=== PATIENT | female | born 1950 | race Caucasian/White ===

== ENCOUNTER 2017-11-18 12:37 | Inpatient (IN) | payer OTHER ==
--- NOTE | 2017-11-18 13:03 | PDOC ---
History of Present Illness - General History Source: Patient - History of Present Illness Initial Comments: 11/18/17 14:34 67 year old female with a PMH of IDDM, COPD, ? CHF, Lymphedema, Venous stasis and NEIL presents to the ED c/o 2 day h/o shortness of breath (at rest and exertion) and productive cough (whitish sputum). Patient states at baseline she is on between 1-3 L O2 however for the last 2 days she has been using 3 L and is still short of breath. Denies any fevers/chills, tolerating PO intake. Patient further states she is sometimes told she has CHF and sometimes told she doesn't have CHF. Allergy: Tigecycline Surgical: denies Social: (+) cigarettes As per EMR patient was admitted to our facility in 09/2017 for <Sophy Perdomo - Last Filed: 11/18/17 15:00> <Keisha Wallis - Last Filed: 11/18/17 20:38> - General Stated Complaint: CHF Time Seen by Provider: 11/18/17 12:58 Past History - Past Medical History COPD: Yes Diabetes: Yes HTN: Yes Hypercholesterolemia: Yes - Immunization History Immunization Up to Date: Yes - Suicide/Smoking/Psychosocial Hx Smoking History: Former smoker Have you smoked in the past 12 months: No If you are a former smoker, when did you quit?: 2003 Hx Alcohol Use: No Drug/Substance Use Hx: No Substance Use Type: None Hx Substance Use Treatment: No <Sophy Perdomo - Last Filed: 11/18/17 15:00> <Keisha Wallis - Last Filed: 11/18/17 20:38> - Past Medical History Allergies/Adverse Reactions: Allergies Allergy/AdvReac Type Severity Reaction Status Date / Time tigecycline Allergy Mild Verified 11/18/17 18:49 Home Medications: Ambulatory Orders Albuterol Sulfate [Proair Hfa] 2 inh IN QID PRN 10/17/17 Amlodipine Besylate [Norvasc -] 1 tab PO DAILY 10/17/17 Aspirin [ASA -] 81 mg PO DAILY 10/17/17 Calcium Carbonate/Vitamin D3 [Calcium 600-Vit D3 400 Tablet] 2 each PO DAILY 08/01 Furosemide [Lasix] 60 mg PO DAILY 10/17/17 Guaifenesin/Pseudoephedrne HCl [Mucinex D ER 600-60 mg Tablet] 1 each PO BID 08/01 Insulin Aspart [Novolog Flexpen] 6 unit SQ TID 10/17/17 Insulin Glargine,Hum.rec.anlog [Lantus Solostar] 22 units SQ HS 10/17/17 Insulin NPH Hum/Reg Insulin Hm [Novolin 70-30 100 Unit/ml Vial] 1 unit SQ PRN PRN 10/17/17 Krill/Om-3/Dha/Epa/Phospho/Ast [Almo-3 Krill Oil 300 mg Sfgl] 1 each PO DAILY 10/17/17 Lisinopril [Prinivil -] 40 mg PO DAILY 10/17/17 Loratadine 10 mg PO DAILY 10/17/17 Magnesium Hydroxide [Milk of Magnesia] 30 ml PO BID PRN 10/17/17 Polyethylene Glycol 3350 [Miralax 119 gm Btl -] 1 packet PO BID 10/17/17 Potassium Chloride [K-Dur -] 1 tablet PO BID 10/17/17 Psyllium Husk (with Sugar) [Metamucil Packet] 3.4 gm PO BID 10/17/17 Ranitidine [Zantac -] 1 tab PO BID 10/17/17 Refresh P.M 1 applic OS BID 10/17/17 Roflumilast [Daliresp] 500 mcg PO DAILY 10/17/17 Saliva Stimulant Comb. No.2 [Biotene Oralbalance] 1 cap PO BID 10/17/17 Sennosides [Senna] 2 tab PO HS PRN 10/17/17 Simethicone 180 mg PO TID 10/17/17 Simvastatin 20 mg PO HS 10/17/17 Acetylcysteine [Nac] 600 mg PO BID 11/18/17 Albuterol Sulfate [Proventil HFA Inhaler -] 1 puff IH Q8H 11/18/17 Bisacodyl Suppository [Dulcolax Suppository -] 1 supp OR DAILY PRN 11/18/17 Budesonide/Formeterol Fumarate [SYMBICORT 160/4.5mcg -] 1 puff IH DAILY Bupropion HCl [Bupropion HCl ER] 150 mg PO BID 11/18/17 Calcium Carbonate/Vitamin D3 [Calcium 600 + Vit D 400 Softgl] 1 tab PO BID 11/18 Cephalexin [Keflex] 500 mg PO BID 11/18/17 Docusate Sodium [Colace -] 300 mg PO HS 11/18/17 Facial Mask [Nexcare All Purpose Mask] 1 adh.patch .ROUTE DAILY 11/18/17 Fluticasone Propionate [Flovent Diskus] 50 mcg IH DAILY 11/18/17 Furosemide 80 mg PO BID 11/18/17 Lactobacillus Acidophilus [Bacid -] 1 tab PO BID 11/18/17 Prednisone 5 mg PO DAILY 11/18/17 Sodium Phosphate,[place]-Dibasic [Fleet Enema] 133 ml OR DAILY PRN 11/18/17 predniSONE [Deltasone -] 15 mg PO DAILY 11/18/17 *Physical Exam - Vital Signs Last Vital Signs Temp Pulse Resp BP Pulse Ox 98.8 F 73 20 126/62 91 L 11/18/17 13:00 11/18/17 13:00 11/18/17 13:00 11/18/17 13:00 11/18/17 13:00 <Keisha Wallis - Last Filed: 11/18/17 20:38> ED Treatment Course - LABORATORY CBC & Chemistry Diagram: 11/18/17 13:52 11/18/17 13:52 <Sophy Perdomo - Last Filed: 11/18/17 15:00> - LABORATORY CBC & Chemistry Diagram: 11/18/17 13:52 11/18/17 14:35 - ADDITIONAL ORDERS Additional order review: Laboratory Results 11/18/17 11/18/17 14:35 13:52 Sodium 139 Cancelled Potassium 4.3 Cancelled Chloride 100 Cancelled Carbon Dioxide 34 H Cancelled Anion Gap 5 L Cancelled BUN 22 H Cancelled Creatinine 0.9 Cancelled Creat Clearance w eGFR > 60 Cancelled Random Glucose 193 H Cancelled Calcium 9.0 Cancelled Total Bilirubin 0.4 Cancelled AST 19 Cancelled ALT 26 Cancelled Alkaline Phosphatase 43 L Cancelled Creatine Kinase Cancelled Troponin I Cancelled B-Natriuretic Peptide Cancelled Total Protein 5.8 L Cancelled Albumin 3.4 Cancelled 11/18/17 13:52 RBC 4.21 MCV 94.7 MCHC 32.6 RDW 14.8 MPV 7.9 Neutrophils % 92.4 H Lymphocytes % 3.9 L D Monocytes % 2.7 L Eosinophils % 0.3 D Basophils % 0.7 D - Medications Given in the ED: ED Medications Discontinued Medications Generic Name Dose Route Start Last Admin Trade Name Sam PRN Reason Stop Dose Admin Albuterol/Ipratropium 1 amp 11/18/17 13:41 11/18/17 14:08 Duoneb - NEB 11/18/17 13:42 1 amp RTID ONE Administration Magnesium Sulfate 2 gm 11/18/17 13:42 11/18/17 14:08 Magnesium Sulfate IVPB 11/18/17 13:43 2 gm ONCE ONE Administration Methylprednisolone Sodium Succinate 125 mg 11/18/17 13:42 11/18/17 14:08 Solu-Medrol - IVPUSH 11/18/17 13:43 125 mg ONCE ONE Administration <Keisha Wallis - Last Filed: 11/18/17 20:38> Medical Decision Making - Medical Decision Making 11/18/17 14:41 67 year old female presents with dyspnea and productive cough. Will administer Duo Nebs, Mg, Solumedrol. Likely disposition is admission. 11/18/17 15:00 EKG shows <Sophy Perdomo - Last Filed: 11/18/17 15:00> - Medical Decision Making old RBBB, sinus rhythm 11/18/17 20:38 <Keisha Wallis - Last Filed: 11/18/17 20:38> *DC/Admit/Observation/Transfer <Sophy Perdomo - Last Filed: 11/18/17 15:00> - Discharge Dispostion Decision to Admit order: Yes <Keisha Wallis - Last Filed: 11/18/17 20:38> Diagnosis at time of Disposition: COPD exacerbation - Discharge Dispostion Condition at time of disposition: Stable
--- NOTE | 2017-11-18 13:37 | PDOC ---
Attending Attestation - HPI HPI: 11/18/17 13:52 67 YOF with h/o COPD on 3L home O2, IDDM, ?CHF, NEIL on nocturnal CPap, chronic lymphedema, venous stasis presenting with productive cough and shortness of breath for several days. The patient is complaining of a persistent cough productive of white sputum. Patient is complaining of worsening shortness of breath despite using 3L O2 at home. Patient states she has been eating and drinking normally at home. The patient's last admission for similar symptoms of dyspnea and respiratory failure was in September 2017. The patient denies chest pain, headache and dizziness. Denies fever, chills, nausea, vomit, diarrhea and constipation. Denies dysuria, frequency, urgency and hematuria. Allergies: tigecycline Past surgical history: None reported. Social history: No reported alcohol, drug, or cigarette use. PCP: Dr. Albert - Physicial Exam PE: 11/18/17 13:48 General: awake and alert, mild respiratory distress HEENT: NCAT, PERRL, EOMI, clear conjunctiva, anicteric, dry mucus membranes, clear oropharynx. Airway patent, normal phonation. Neck: neck supple, FROM, no JVD, LAD or masses Lungs: crackles at bases, with diffuse expiratory wheezing. mild respiratory distress Heart: RRR, no murmur. 2+ peripheral pulses throughout, 3+ pitting edema bilaterally with venous stasis changes Abdomen: protuberant, nontender, nonperitoneal Back: nontender, normal inspection and ROM MSK: SRIVASTAVA x4, ROM intact. No clubbing or cyanosis. normal bulk and tone. Neuro: alert, no focal neurologic deficits. Skin: warm and well perfused, cap refill <2 sec, BLE with venous stasis changes , 3+ pitting edema <Sarah Ngo - Last Filed: 11/18/17 13:59> - Resident Resident Name: Sophy Perdomo - Medical Decision Making 11/18/17 13:27 67 YOF with h/o COPD on 3L home O2, IDDM, ?CHF, NEIL on nocturnal CPap, chronic lymphedema, venous stasis presenting with productive white cough and shortness of breath x several days. no fevers. last admitted 09/2017 for similar sx of dyspnea and respiratory failure. vital signs reviewed, mild SpO2 91% on O2 exam with b/l wheezing. On Home O2 3 liters. DDx. COPD exacerbation, CHF , viral syndrome, pneumonia, bronchitis, respiratory failure, dehydration, ACS, pleurisy, effusion given Duonebs x3, IV solumedrol, Magnesium 2g prior echo from 10/2017 reviewed, EF 65-70% so doubt CHF, normal systolic function and some left atrial enlargement. labs_ unremarkable, trop and bnp pending. lytes wnl, borderline leukocytosis. clinically improved with tx. plan: admit to hospitalist for most likely COPD exacerbation, as prior echo does not reflect CHF or heart failure of systolic or diastolic nature. Nebs, steroids, mag given, feels improved, stable for floors and medical admit. 11/18/17 16:09 <Keisha Wallis - Last Filed: 11/18/17 16:11> Heart Score/ECG Review - ECG Intrepretation Rhythm: Regular Rhythm - [place] Brookdale: Left [place] Deviation - QRS Widened: RBBB - ST and T Non Specific ST-T Wave changes: Yes Flattened T Waves: No Prolonged Q-T Interval: No - ECG Impressions Normal ECG: No Ischemic Changes: No Tachycardia: Sinus Comment:: 11/18/17 14:19 old RBBB, sinus rhythm <Keisha Wallis - Last Filed: 11/18/17 16:11>
[2017-11-18 13:38] VITALS: BMI 46.5
[2017-11-18] MEDS ORDERED: ALBUTEROL SO4 2.5/IPRATROPIUM 0.5 INH SOL 3 ML VIAL.NEB. NEB ONE ×2 (13:41→14:10)
[2017-11-18] MEDS ORDERED: MAGNESIUM SULF 50% (8.12 MEQ/2 ML-1 GM VIAL) IVPB ONE (13:42)
[2017-11-18] MEDS ORDERED: methylPREDNISolone NA SUCC 125 MG/2 ML VIAL IVPUSH ONE (13:42)
[2017-11-18 14:08] LABS: BASO % 0.7 % (0-2.0); EOS % 0.3 % (0-4.5); HEMATOCRIT 39.9 % (32.4-45.2); LYMPH % 3.9 % (8-40); MCH 30.9 pg (25.7-33.7); MCHC 32.6 g/dl (32.0-36.0); MEAN CELL VOLUME 94.7 fl (80-96); MEAN PLT VOLUME 7.9 fl (7.5-11.1); MONO % 2.7 % (3.8-10.2); NEUT % 92.4 % (42.8-82.8); PLATELET COUNT 270 K/MM3 (134-434); RBC 4.21 M/mm3 (3.60-5.2); RDW 14.8 % (11.6-15.6); WHITE BLOOD COUNT 10.2 K/mm3 (4.0-10.0)
[2017-11-18] MEDS ORDERED: methylPREDNISolone NA SUCC 125 MG/2 ML VIAL ONE (14:10)
[2017-11-18] MEDS ORDERED: MAGNESIUM SULF 50% (8.12 MEQ/2 ML-1 GM VIAL) ONE (14:10)
[2017-11-18] MEDS ORDERED: MAGNESIUM 1GM/D5W - 1 GM/100 ML IVPB IVPB ONE (14:10)
[2017-11-18 14:35] LABS: ANISOCYTOSIS 1+; MACROCYTOSIS 1+; PLATELET ESTIMATE NORMAL
[2017-11-18 15:05] LABS: ALBUMIN 3.4 g/dl (3.4-5.0); ANION GAP 5 (8-16); BILIRUBIN,TOTAL 0.4 mg/dL (0.2-1.0); BLOOD UREA NITROGEN 22 mg/dL (7-18); CHLORIDE 100 mmol/L (98-107); CO2 34 mmol/L (21-32); CREATININE 0.9 mg/dL (0.55-1.02); GLUCOSE,RANDOM 193 mg/dL (74-106); POTASSIUM 4.3 mmol/L (3.5-5.1); SGOT/AST 19 U/L (15-37); SGPT/ALT 26 U/L (12-78); SODIUM 139 mmol/L (136-145); TOT PROT 5.8 g/dl (6.4-8.2)
[2017-11-18 15:06] LABS: ALK PHOS 43 U/L (45-117)
[2017-11-18 16:57] LABS: VENOUS PH 7.26 (7.32-7.42); VENOUS PO2 27.2 mmHg (28-48)
[2017-11-18 16:59] LABS: VENOUS PC02 73.9 mmHg (38-52)
--- NOTE | 2017-11-18 17:20 | PN ---
Teaching Attending Note Name of Resident: Laverne Lauren ATTENDING PHYSICIAN STATEMENT I saw and evaluated the patient. I reviewed the resident's note and discussed the case with the resident. I agree with the resident's findings and plan as documented with exceptions below. SUBJECTIVE: 67yo F wtih PMH COPD on home o2 2L NC, NEIL, CHF, DM, chronic venous stasis, recent R lung nodule sent from [facility] with progressively worsening SOB and productive cough of white sputum for last 2-3 days. no fevers, chills, nausea, vomiting, abdominal or urinary symptoms. Has chronic leg edema with stasis, but unable to fit compression stockings lately with ongoing symptoms. Denies any new redness, pain, or fevers with the same. Is not able to sleep flat in bed, but no recent change. Is currently on prednisone 20 mg daily from recent taper. Currently feels her breathing is with some improvement. OBJECTIVE: Vital Signs Period Temp Pulse Resp BP Sys/Joya Pulse Ox Last 24 Hr 98.2 F-98.8 F 68-73 20-20 124-126/62-68 91-92 Intake & Output 11/15/17 11/16/17 11/17/17 11/18/17 23:59 23:59 23:59 23:59 Weight 280 lb GENERAL: Awake, alert, and fully oriented, in no acute distress, able to talk in full sentences, no use of acessory muscles of respiration. HEAD: Normal with no signs of trauma. EYES: Pupils equal, round and reactive to light, extraocular movements intact, sclera anicteric, conjunctiva clear. No lid lag. EARS, NOSE, THROAT: Ears normal, nares patent, oropharynx clear without exudates. Moist mucous membranes. NECK: soft, supple, no JVD visualized LUNGS: Bilateral positive but decreased air entry, expiratory wheezes all over, no rales appreciated HEART:S1s2 regular ABDOMEN: Soft, nontender, not distended, normoactive bowel sounds, no guarding, no rebound, no masses. MUSCULOSKELETAL: Normal range of motion at all joints. No bony deformities or tenderness. No CVA tenderness. UPPER EXTREMITIES: 2+ pulses, warm, well-perfused. No cyanosis. No clubbing. No peripheral edema. LOWER EXTREMITIES: bilateral LE varicositis with swelling L>R (swelling is improved from recent admission), Lower extremity skin discoloration, Right lower 1/3rd and LLE till mid leg with some pitting and petechiae NEUROLOGICAL: Cranial nerves II-XII grossly intact. Normal speech. gait deferred PSYCHIATRIC: Cooperative. Good eye contact. Appropriate mood and affect. SKIN: Warm, dry, normal turgor, no rashes or lesions noted, normal capillary refill. Home Medications Medication Instructions Recorded Albuterol Sulfate [Proair Hfa] 2 inh IN QID PRN 10/17/17 Amlodipine Besylate [Norvasc -] 1 tab PO DAILY 10/17/17 Aspirin [ASA -] 81 mg PO DAILY 10/17/17 Calcium Carbonate/Vitamin D3 2 each PO DAILY 10/17/17 [Calcium 600-Vit D3 400 Tablet] Furosemide [Lasix] 60 mg PO DAILY 10/17/17 Guaifenesin/Pseudoephedrne HCl 1 each PO BID 10/17/17 [Mucinex D ER 600-60 mg Tablet] Insulin Aspart [Novolog Flexpen] 6 unit SQ TID 10/17/17 Insulin Glargine,Hum.rec.anlog 22 units SQ HS 10/17/17 [Lantus Solostar] Insulin NPH Hum/Reg Insulin Hm 1 unit SQ PRN PRN 10/17/17 [Novolin 70-30 100 Unit/ml Vial] Krill/Om-3/Dha/Epa/Phospho/Ast 1 each PO DAILY 10/17/17 [[place]-3 Krill Oil 300 mg Sfgl] Lisinopril [Prinivil -] 40 mg PO DAILY 10/17/17 Loratadine 10 mg PO DAILY 10/17/17 Magnesium Hydroxide [Milk of 30 ml PO BID PRN 10/17/17 Magnesia] Polyethylene Glycol 3350 [Miralax 1 packet PO BID 10/17/17 119 gm Btl -] Potassium Chloride [K-Dur -] 1 tablet PO BID 10/17/17 Psyllium Husk (with Sugar) 3.4 gm PO BID 10/17/17 [Metamucil Packet] Ranitidine [Zantac -] 1 tab PO BID 10/17/17 Refresh P.M 1 applic OS BID 10/17/17 Roflumilast [Daliresp] 500 mcg PO DAILY 10/17/17 Saliva Stimulant Comb. No.2 1 cap PO BID 10/17/17 [Biotene Oralbalance] Sennosides [Senna] 2 tab PO HS PRN 10/17/17 Simethicone 180 mg PO TID 10/17/17 Simvastatin 20 mg PO HS 10/17/17 Acetylcysteine [Nac] 600 mg PO BID 11/18/17 Albuterol Sulfate [Proventil HFA 1 puff IH Q8H 11/18/17 Inhaler -] Bisacodyl Suppository [Dulcolax 1 supp MI DAILY PRN 11/18/17 Suppository -] Budesonide/Formeterol Fumarate 1 puff IH DAILY 11/18/17 [SYMBICORT 160/4.5mcg -] Bupropion HCl [Bupropion HCl ER] 150 mg PO BID 11/18/17 Calcium Carbonate/Vitamin D3 1 tab PO BID 11/18/17 [Calcium 600 + Vit D 400 Softgl] Cephalexin [Keflex] 500 mg PO BID 11/18/17 Docusate Sodium [Colace -] 300 mg PO HS 11/18/17 Facial Mask [Nexcare All Purpose 1 adh.patch .ROUTE DAILY 11/18/17 Mask] Fluticasone Propionate [Flovent 50 mcg IH DAILY 11/18/17 Diskus] Furosemide 80 mg PO BID 11/18/17 Lactobacillus Acidophilus [Bacid -] 1 tab PO BID 11/18/17 Prednisone 5 mg PO DAILY 11/18/17 Sodium Phosphate,[place]-Dibasic 133 ml [place] DAILY PRN 11/18/17 [Fleet Enema] predniSONE [Deltasone -] 15 mg PO DAILY 11/18/17 Laboratory Results - last 24 hr 11/18/17 11/18/17 11/18/17 13:52 13:52 14:35 WBC 10.2 H RBC 4.21 Hgb 13.0 Hct 39.9 MCV 94.7 MCH 30.9 MCHC 32.6 RDW 14.8 Plt Count 270 MPV 7.9 Absolute Neuts (auto) 9.4 Neutrophils % 92.4 H Neutrophils % (Manual) 90.9 H Band Neutrophils % 1.0 Lymphocytes % 3.9 L D Lymphocytes % (Manual) 5.1 L D Monocytes % 2.7 L Monocytes % (Manual) 3 L Eosinophils % 0.3 D Eosinophils % (Manual) 0.0 Basophils % 0.7 D Basophils % (Manual) 0.0 Myelocytes % (Man) 0 Promyelocytes % (Man) 0 Blast Cells % (Manual) 0 Nucleated RBC % 0 Metamyelocytes 0 Hypochromia 1+ Platelet Estimate Normal Polychromasia 1+ Poikilocytosis 0 Anisocytosis 1+ Macrocytosis 1+ VBG pH POC VBG pCO2 POC VBG pO2 Mixed VBG HCO3 Sodium Cancelled 139 Potassium Cancelled 4.3 Chloride Cancelled 100 Carbon Dioxide Cancelled 34 H Anion Gap Cancelled 5 L BUN Cancelled 22 H Creatinine Cancelled 0.9 Creat Clearance w eGFR Cancelled > 60 Random Glucose Cancelled 193 H Calcium Cancelled 9.0 Total Bilirubin Cancelled 0.4 AST Cancelled 19 ALT Cancelled 26 Alkaline Phosphatase Cancelled 43 L Creatine Kinase Cancelled Troponin I Cancelled B-Natriuretic Peptide Cancelled Total Protein Cancelled 5.8 L Albumin Cancelled 3.4 11/18/17 15:45 WBC RBC Hgb Hct MCV MCH MCHC RDW Plt Count MPV Absolute Neuts (auto) Neutrophils % Neutrophils % (Manual) Band Neutrophils % Lymphocytes % Lymphocytes % (Manual) Monocytes % Monocytes % (Manual) Eosinophils % Eosinophils % (Manual) Basophils % Basophils % (Manual) Myelocytes % (Man) Promyelocytes % (Man) Blast Cells % (Manual) Nucleated RBC % Metamyelocytes Hypochromia Platelet Estimate Polychromasia Poikilocytosis Anisocytosis Macrocytosis VBG pH 7.26 L POC VBG pCO2 73.9 H* POC VBG pO2 27.2 L Mixed VBG HCO3 32.3 H Sodium Potassium Chloride Carbon Dioxide Anion Gap BUN Creatinine Creat Clearance w eGFR Random Glucose Calcium Total Bilirubin AST ALT Alkaline Phosphatase Creatine Kinase Troponin I B-Natriuretic Peptide Total Protein Albumin CXr - no acute process EKG - RBBB ASSESSMENT AND PLAN: 67yo F wtih PMH COPD on home o2 2L NC, NEIL, CHF, DM, chronic venous stasis, recent R lung nodule sent from [facility] with progressively worsening SOB and productive cough of white sputum, recently admitted with COPD exacerbation/ Diastolic HF comes with similar complaints while tapered on prednisone to 20 mg. -Acute on chronic hypoxic/hypercapneic respiratory failure -Acute COPD exacerbation -Chronic diastolic heart failure -Oxygen/steroid dependent COPD -IDDM -Chronic venous stasis -Right lung nodule Plan: Solumedrol 60 mg IV q6h, standing and prn nebs, Pulmonary consult, BIpap hs 30/12. Lasix 40 mg IV daily for now. Home levemir, ISS and diabetic diet. No clinical evidence of infection, hold off antibiotics and monitor for now. Compression stockings, recent courses of antibiotics, seen by Dr. Camilo on recent visit, Hold off additional antibiotics. DVTPPx with heparin Dispo back to [facility] once clinically improved. Plan discussed with patient in detail, all questions answered. total admit time 65 min.
[2017-11-18] MEDS ORDERED: SENNOSIDES 8.6MG TABLET (FP) PO PRN (18:16)
[2017-11-18] MEDS ORDERED: BISACODYL 10 MG SUPP.RECT RC PRN (18:17)
--- NOTE | 2017-11-18 18:42 | HP ---
CHIEF COMPLAINT: Shortness of breath, Productive Cough PCP: Dr. Albert HISTORY OF PRESENT ILLNESS: 67 y/o female resident of [facility] with a PMHx of IDDM, COPD on 1-3L of O2 at home, OAS on Bipap, CHF, HTN, HLD, Lymphedema, Venous stasis and Lung nodule presents with 2 day hx of SOB. Patient has had difficulty breathing for the few days accompanied by a cough productive of white sputum. Patient has had to increase her home oxygen to >3L multiples over the past few days with minimal relief. She has tried Mucomist, flonase and claritin all with minimal relief. Patient is currently coming off a prednisone taper, and took 20 mg this morning. Denies any recent travels or sick contacts. ER course was notable for: (1) Duonebs X3, IV Salumederol, Mag 2g (2) WBC: 10.2 (3) CXR: No acute cardiopulmonary pathology (4) EKG: Sinus bradycardia, RBBB Recent Travel: Denies PAST MEDICAL HISTORY: As above PAST SURGICAL HISTORY: Leg stripping 1984 Tonsillectomy Sinus surgery Social History: Smoking: quit in 2003 Alcohol: denies Drugs: denies Family History: Allergies tigecycline Allergy (Mild, Verified 10/17/17 17:58) pt states she gets hives HOME MEDICATIONS: Home Medications Medication Instructions Recorded Albuterol Sulfate [Proair Hfa] 2 inh IN QID PRN 10/17/17 Amlodipine Besylate [Norvasc -] 1 tab PO DAILY 10/17/17 Aspirin [ASA -] 81 mg PO DAILY 10/17/17 Calcium Carbonate/Vitamin D3 2 each PO DAILY 10/17/17 [Calcium 600-Vit D3 400 Tablet] Furosemide [Lasix] 60 mg PO DAILY 10/17/17 Guaifenesin/Pseudoephedrne HCl 1 each PO BID 10/17/17 [Mucinex D ER 600-60 mg Tablet] Insulin Aspart [Novolog Flexpen] 6 unit SQ TID 10/17/17 Insulin Glargine,Hum.rec.anlog 22 units SQ HS 10/17/17 [Lantus Solostar] Insulin NPH Hum/Reg Insulin Hm 1 unit SQ PRN PRN 10/17/17 [Novolin 70-30 100 Unit/ml Vial] Krill/Om-3/Dha/Epa/Phospho/Ast 1 each PO DAILY 10/17/17 [[place]-3 Krill Oil 300 mg Sfgl] Lisinopril [Prinivil -] 40 mg PO DAILY 10/17/17 Loratadine 10 mg PO DAILY 10/17/17 Magnesium Hydroxide [Milk of 30 ml PO BID PRN 10/17/17 Magnesia] Polyethylene Glycol 3350 [Miralax 1 packet PO BID 10/17/17 119 gm Btl -] Potassium Chloride [K-Dur -] 1 tablet PO BID 10/17/17 Psyllium Husk (with Sugar) 3.4 gm PO BID 10/17/17 [Metamucil Packet] Ranitidine [Zantac -] 1 tab PO BID 10/17/17 Refresh P.M 1 applic OS BID 10/17/17 Roflumilast [Daliresp] 500 mcg PO DAILY 10/17/17 Saliva Stimulant Comb. No.2 1 cap PO BID 10/17/17 [Biotene Oralbalance] Sennosides [Senna] 2 tab PO HS PRN 10/17/17 Simethicone 180 mg PO TID 10/17/17 Simvastatin 20 mg PO HS 10/17/17 Acetylcysteine [Nac] 600 mg PO BID 11/18/17 Albuterol Sulfate [Proventil HFA 1 puff IH Q8H 11/18/17 Inhaler -] Bisacodyl Suppository [Dulcolax 1 supp [place] DAILY PRN 11/18/17 Suppository -] Budesonide/Formeterol Fumarate 1 puff IH DAILY 11/18/17 [SYMBICORT 160/4.5mcg -] Bupropion HCl [Bupropion HCl ER] 150 mg PO BID 11/18/17 Calcium Carbonate/Vitamin D3 1 tab PO BID 11/18/17 [Calcium 600 + Vit D 400 Softgl] Cephalexin [Keflex] 500 mg PO BID 11/18/17 Docusate Sodium [Colace -] 300 mg PO HS 11/18/17 Facial Mask [Nexcare All Purpose 1 adh.patch .ROUTE DAILY 11/18/17 Mask] Fluticasone Propionate [Flovent 50 mcg IH DAILY 11/18/17 Diskus] Furosemide 80 mg PO BID 11/18/17 Lactobacillus Acidophilus [Bacid -] 1 tab PO BID 11/18/17 Prednisone 5 mg PO DAILY 11/18/17 Sodium Phosphate,[place]-Dibasic 133 ml [place] DAILY PRN 11/18/17 [Fleet Enema] predniSONE [Deltasone -] 15 mg PO DAILY 11/18/17 Active Medications Albuterol/Ipratropium (Duoneb -) 1 amp NEB RQID [facility] Last Admin: 11/18/17 19:15 Dose: 1 amp Albuterol/Ipratropium (Duoneb -) 1 amp NEB Q4H PRN PRN Reason: SHORTNESS OF BREATH Amlodipine Besylate (Norvasc -) 5 mg PO DAILY [facility] Atorvastatin Calcium (Lipitor -) 20 mg PO HS [facility] Bisacodyl (Dulcolax Suppository -) 10 mg RC Q24H PRN PRN Reason: CONSTIPATION Bupropion HCl (Wellbutrin Xl -) 150 mg PO DAILY [facility] Calcium Carbonate/Cholecalciferol (Os-Kenny 500+D -) 1 tab PO BID [facility] Docusate Sodium (Colace -) 100 mg PO DAILY [facility] Fluticasone Propionate (Flonase -) 2 spray NS DAILY [facility] Furosemide (Lasix Injection -) 40 mg IVPUSH DAILY [facility] Last Admin: 11/18/17 18:56 Dose: 40 mg Guaifenesin (Mucinex -) 600 mg PO BID [facility] Heparin Sodium (Porcine) (Heparin -) 5,000 unit SQ TID [facility] Insulin Aspart (Novolog Vial) 6 units SQ TIDAC [facility] Insulin Detemir (Levemir Vial) 22 units SQ HS [facility] Lactobacillus Acidophilus (Bacid -) 1 tab PO BID [facility] Lisinopril (Prinivil) 40 mg PO DAILY [facility] Loratadine (Claritin -) 10 mg PO DAILY [facility] Magnesium Hydroxide (Milk Of Magnesia -) 30 ml PO BID [facility] Methylprednisolone Sodium Succinate (Solu-Medrol -) 60 mg IVPUSH Q6H-IV [facility] Polyethylene Glycol (Miralax (For Daily Use) -) 17 gm PO DAILY [facility] Potassium Chloride (K-Dur -) 20 meq PO DAILY [facility] Psyllium Hydrophilic Mucilloid (Metamucil (Sugar-Free) -) 5.85 gm PO BID [facility] Ranitidine HCl (Zantac -) 150 mg PO BID [facility] Roflumilast (Daliresp -) 500 mcg PO DAILY [facility] Senna (Senna -) 2 tab PO HS PRN PRN Reason: CONSTIPATION Simethicone (Mylicon -) 160 mg PO Q8H PRN PRN Reason: GAS REVIEW OF SYSTEMS CONSTITUTIONAL: Absent: fever, chills, diaphoresis, generalized weakness, malaise, loss of appetite, weight change HEENT: Absent: rhinorrhea, nasal congestion, throat pain, throat swelling, difficulty swallowing, mouth swelling, ear pain, eye pain, visual changes CARDIOVASCULAR: +: peripheral edema Absent: chest pain, syncope, palpitations, irregular heart rate, lightheadedness RESPIRATORY: +: cough, shortness of breath, wheezing Absent: dyspnea with exertion, orthopnea, stridor, hemoptysis GASTROINTESTINAL: Absent: abdominal pain, abdominal distension, nausea, vomiting, diarrhea, constipation, melena, hematochezia GENITOURINARY: Absent: dysuria, frequency, urgency, hesitancy, hematuria, flank pain, genital pain MUSCULOSKELETAL: Absent: myalgia, arthralgia, joint swelling, back pain, neck pain SKIN: Absent: rash, itching, pallor HEMATOLOGIC/IMMUNOLOGIC: Absent: easy bleeding, easy bruising, lymphadenopathy, frequent infections ENDOCRINE: Absent: unexplained weight gain, unexplained weight loss, heat intolerance, cold intolerance NEUROLOGIC: Absent: headache, focal weakness or paresthesias, dizziness, unsteady gait, seizure, mental status changes, bladder or bowel incontinence PSYCHIATRIC: Absent: anxiety, depression, suicidal or homicidal ideation, hallucinations. PHYSICAL EXAMINATION Vital Signs - 24 hr 11/18/17 11/18/17 11/18/17 13:00 13:10 16:47 Temperature 98.8 F 98.2 F Pulse Rate 73 Pulse Rate [ 68 Apical] Respiratory 20 20 Rate Blood Pressure 126/62 Blood Pressure 124/68 [Left Arm] O2 Sat by Pulse 91 L 91 L 92 L Oximetry (%) GENERAL: Awake, alert, and fully oriented, in no acute distress. HEAD: Normal with no signs of trauma. EYES: Left eye lid lag EARS, NOSE, THROAT: Ears normal, nares patent, oropharynx clear without exudates. Dry mucous membranes. NECK: Normal range of motion, supple without lymphadenopathy, JVD, or masses. LUNGS: Poor airway entry, Wheezes heard throughout, on 3L O2 Via nasal canal HEART: Regular rate and rhythm, normal S1 and S2, Systolic ejection murmur across the pericordium, No rubs or gallops. ABDOMEN: Soft, nontender, not distended, normoactive bowel sounds, no guarding, no rebound, no masses. LOWER EXTREMITIES: 2+ peripheral edema. Discoloration, Varicose veins present, 2 + pulses, warm, No calf tenderness. PSYCHIATRIC: Cooperative. Good eye contact. Appropriate mood and affect. Laboratory Results - last 24 hr 11/18/17 11/18/17 11/18/17 13:52 13:52 14:35 WBC 10.2 H RBC 4.21 Hgb 13.0 Hct 39.9 MCV 94.7 MCH 30.9 MCHC 32.6 RDW 14.8 Plt Count 270 MPV 7.9 Absolute Neuts (auto) 9.4 Neutrophils % 92.4 H Neutrophils % (Manual) 90.9 H Band Neutrophils % 1.0 Lymphocytes % 3.9 L D Lymphocytes % (Manual) 5.1 L D Monocytes % 2.7 L Monocytes % (Manual) 3 L Eosinophils % 0.3 D Eosinophils % (Manual) 0.0 Basophils % 0.7 D Basophils % (Manual) 0.0 Myelocytes % (Man) 0 Promyelocytes % (Man) 0 Blast Cells % (Manual) 0 Nucleated RBC % 0 Metamyelocytes 0 Hypochromia 1+ Platelet Estimate Normal Polychromasia 1+ Poikilocytosis 0 Anisocytosis 1+ Macrocytosis 1+ VBG pH POC VBG pCO2 POC VBG pO2 Mixed VBG HCO3 Sodium Cancelled 139 Potassium Cancelled 4.3 Chloride Cancelled 100 Carbon Dioxide Cancelled 34 H Anion Gap Cancelled 5 L BUN Cancelled 22 H Creatinine Cancelled 0.9 Creat Clearance w eGFR Cancelled > 60 Random Glucose Cancelled 193 H Calcium Cancelled 9.0 Total Bilirubin Cancelled 0.4 AST Cancelled 19 ALT Cancelled 26 Alkaline Phosphatase Cancelled 43 L Creatine Kinase Cancelled Troponin I Cancelled B-Natriuretic Peptide Cancelled Total Protein Cancelled 5.8 L Albumin Cancelled 3.4 11/18/17 15:45 WBC RBC Hgb Hct MCV MCH MCHC RDW Plt Count MPV Absolute Neuts (auto) Neutrophils % Neutrophils % (Manual) Band Neutrophils % Lymphocytes % Lymphocytes % (Manual) Monocytes % Monocytes % (Manual) Eosinophils % Eosinophils % (Manual) Basophils % Basophils % (Manual) Myelocytes % (Man) Promyelocytes % (Man) Blast Cells % (Manual) Nucleated RBC % Metamyelocytes Hypochromia Platelet Estimate Polychromasia Poikilocytosis Anisocytosis Macrocytosis VBG pH 7.26 L POC VBG pCO2 73.9 H* POC VBG pO2 27.2 L Mixed VBG HCO3 32.3 H Sodium Potassium Chloride Carbon Dioxide Anion Gap BUN Creatinine Creat Clearance w eGFR Random Glucose Calcium Total Bilirubin AST ALT Alkaline Phosphatase Creatine Kinase Troponin I B-Natriuretic Peptide Total Protein Albumin ASSESSMENT/PLAN: 67 y/o female resident of [facility] with a PMHx of IDDM, COPD on 1-3L of O2 at home, NEIL on Bipap, ? CHF, admitted for COPD exacerbation. 1. SOB and wheezing 2/2 COPD Exacerbation - Afebrile, WBC 10.2 - CXR: No acute cardiopulmonary pathology - Continue on supplemental O2 @ 3L via nasal cannula - Iv Salumederol 40mg q6H - Duonebs q6h standing, q4H PRN - Dr. Ruvalcaba Consulted 2. CHF - Continue home Lasix 80mg PO BID 3. HTN - Continue home Norvasc 5mg PO Daily - Continue home Lisinopril 40mg PO Daily 4. Peripheral Edema 2/2 Chronic venous stasis - JANELLE Stockings 5. NEIL - Home Bipap at night 6. IDDM - ISS, BGM ACHS 7. Chronic Constipation - Continue Home Colace, Bisacodyl suppository, Fleet enema, Miralax, Milk of magnesia 8. HLD - Continue home Simvastatin 20mg PO HS 9. FEN - No fluids indicated - Electrolytes WNL - Diabetic diet 10 PPx - Heparin 5000 SubQ TID Dispo: Admit to med-surg Visit type - Emergency Visit Emergency Visit: Yes ED Registration Date: 11/18/17 Care time: The patient presented to the Emergency Department on the above date and was hospitalized for further evaluation of their emergent condition. - New Patient This patient is new to me today: Yes Date on this admission: 11/18/17 - Critical Care Critical Care patient: No Hospitalist Screening - Colonoscopy Questionnaire Colonoscopy Questionnaire: Colonoscopy Questionnaire - Patient: 50 - 75 years old and never had a screening colonoscopy: Unknown History of colon or rectal polyps, or CA: Unknown History of IBD, Crohn's disease or UC: Unknown History of abdominal radiation therapy as a child: Unknown - Relative: 1 with colon or rectal CA, or polyps at age 60 or younger: Unknown Colon or rectal CA diagnosed at age 45 or younger: Unknown Multiple relatives with colon or rectal CA: Unknown - Outcome: Screening Result: Negative Screen
[2017-11-18] MEDS: FUROSEMIDE 40 MG/4 ML INJECTABLE VIAL IVPUSH SCH (18:56)
[2017-11-18] MEDS: ALBUTEROL SO4 2.5/IPRATROPIUM 0.5 INH SOL 3 ML VIAL.NEB. NEB SCH (19:15)
--- NOTE | 2017-11-18 20:14 | HP ---
CHIEF COMPLAINT: SOB, cough PCP: HISTORY OF PRESENT ILLNESS: The patient is a 67 yo f pmh DM, COPD, CHF, NEIL who comes into the ED from [facility] c/o a 2 day hx progressively worsening SOB and cough productive of white sputum. Patient has noted an increase in her need for her home oxygen over this same time. She is currently on PO steroid taper, took 20mg this AM. Patient denies fever, chills, sweats, chest pain. ER course was notable for: (1) Nebs x 3, IV medrol, 125mg mg 2g (2) CXR WNL (3) Recent Travel: denies PAST MEDICAL HISTORY: See HPI PAST SURGICAL HISTORY: Leg stripping 1984 Tonsillectomy Sinus surgery Social History: Smoking: former smoker, quit in 2003 Alcohol: denies Drugs: denies Family History: non-contributory Allergies tigecycline Allergy (Mild, Verified 11/18/17 18:49) pt states she gets hives HOME MEDICATIONS: Home Medications Medication Instructions Recorded Albuterol Sulfate [Proair Hfa] 2 inh IN QID PRN 10/17/17 Amlodipine Besylate [Norvasc -] 1 tab PO DAILY 10/17/17 Aspirin [ASA -] 81 mg PO DAILY 10/17/17 Calcium Carbonate/Vitamin D3 2 each PO DAILY 10/17/17 [Calcium 600-Vit D3 400 Tablet] Furosemide [Lasix] 60 mg PO DAILY 10/17/17 Guaifenesin/Pseudoephedrne HCl 1 each PO BID 10/17/17 [Mucinex D ER 600-60 mg Tablet] Insulin Aspart [Novolog Flexpen] 6 unit SQ TID 10/17/17 Insulin Glargine,Hum.rec.anlog 22 units SQ HS 10/17/17 [Lantus Solostar] Insulin NPH Hum/Reg Insulin Hm 1 unit SQ PRN PRN 10/17/17 [Novolin 70-30 100 Unit/ml Vial] Krill/Om-3/Dha/Epa/Phospho/Ast 1 each PO DAILY 10/17/17 [[place]-3 Krill Oil 300 mg Sfgl] Lisinopril [Prinivil -] 40 mg PO DAILY 10/17/17 Loratadine 10 mg PO DAILY 10/17/17 Magnesium Hydroxide [Milk of 30 ml PO BID PRN 10/17/17 Magnesia] Polyethylene Glycol 3350 [Miralax 1 packet PO BID 10/17/17 119 gm Btl -] Potassium Chloride [K-Dur -] 1 tablet PO BID 10/17/17 Psyllium Husk (with Sugar) 3.4 gm PO BID 10/17/17 [Metamucil Packet] Ranitidine [Zantac -] 1 tab PO BID 10/17/17 Refresh P.M 1 applic OS BID 10/17/17 Roflumilast [Daliresp] 500 mcg PO DAILY 10/17/17 Saliva Stimulant Comb. No.2 1 cap PO BID 10/17/17 [Biotene Oralbalance] Sennosides [Senna] 2 tab PO HS PRN 10/17/17 Simethicone 180 mg PO TID 10/17/17 Simvastatin 20 mg PO HS 10/17/17 Acetylcysteine [Nac] 600 mg PO BID 11/18/17 Albuterol Sulfate [Proventil HFA 1 puff IH Q8H 11/18/17 Inhaler -] Bisacodyl Suppository [Dulcolax 1 supp [place] DAILY PRN 11/18/17 Suppository -] Budesonide/Formeterol Fumarate 1 puff IH DAILY 11/18/17 [SYMBICORT 160/4.5mcg -] Bupropion HCl [Bupropion HCl ER] 150 mg PO BID 11/18/17 Calcium Carbonate/Vitamin D3 1 tab PO BID 11/18/17 [Calcium 600 + Vit D 400 Softgl] Cephalexin [Keflex] 500 mg PO BID 11/18/17 Docusate Sodium [Colace -] 300 mg PO HS 11/18/17 Facial Mask [Nexcare All Purpose 1 adh.patch .ROUTE DAILY 11/18/17 Mask] Fluticasone Propionate [Flovent 50 mcg IH DAILY 11/18/17 Diskus] Furosemide 80 mg PO BID 11/18/17 Lactobacillus Acidophilus [Bacid -] 1 tab PO BID 11/18/17 Prednisone 5 mg PO DAILY 11/18/17 Sodium Phosphate,[place]-Dibasic 133 ml [place] DAILY PRN 11/18/17 [Fleet Enema] predniSONE [Deltasone -] 15 mg PO DAILY 11/18/17 REVIEW OF SYSTEMS CONSTITUTIONAL: Absent: fever, chills, diaphoresis, generalized weakness, malaise, loss of appetite, weight change HEENT: Absent: rhinorrhea, nasal congestion, throat pain, throat swelling, difficulty swallowing, mouth swelling, ear pain, eye pain, visual changes CARDIOVASCULAR: Absent: chest pain, syncope, palpitations, irregular heart rate, lightheadedness RESPIRATORY: Absent: orthopnea, stridor, hemoptysis GASTROINTESTINAL: Absent: abdominal pain, abdominal distension, nausea, vomiting, diarrhea, constipation, melena, hematochezia GENITOURINARY: Absent: dysuria, frequency, urgency, hesitancy, hematuria, flank pain, genital pain MUSCULOSKELETAL: Absent: myalgia, arthralgia, joint swelling, back pain, neck pain SKIN: Absent: rash, itching, pallor HEMATOLOGIC/IMMUNOLOGIC: Absent: easy bleeding, easy bruising, lymphadenopathy, frequent infections ENDOCRINE: Absent: unexplained weight gain, unexplained weight loss, heat intolerance, cold intolerance NEUROLOGIC: Absent: headache, focal weakness or paresthesias, dizziness, unsteady gait, seizure, mental status changes, bladder or bowel incontinence PSYCHIATRIC: Absent: anxiety, depression, suicidal or homicidal ideation, hallucinations. PHYSICAL EXAMINATION Vital Signs - 24 hr 11/18/17 11/18/17 11/18/17 13:00 13:10 16:47 Temperature 98.8 F 98.2 F Pulse Rate 73 Pulse Rate [ 68 Apical] Respiratory 20 20 Rate Blood Pressure 126/62 Blood Pressure 124/68 [Left Arm] O2 Sat by Pulse 91 L 91 L 92 L Oximetry (%) GENERAL: Awake, alert, and fully oriented, in no acute distress. HEAD: Normal with no signs of trauma. EYES: Pupils equal, round and reactive to light, extraocular movements intact, sclera anicteric, conjunctiva clear. No lid lag. EARS, NOSE, THROAT: oropharynx clear without exudates. Moist mucous membranes. NECK: Normal range of motion, supple without lymphadenopathy, JVD, or masses. LUNGS: Breath sounds equal, decreased air entry b/l coarse wheezes heard b/l. No accessory muscle use. HEART: Regular rate and rhythm, 2/6 systolic ejection murmur heard all across the precordium. ABDOMEN: Soft, nontender, not distended, normoactive bowel sounds, no guarding, no rebound, no masses. No hepatomegaly or splenomegaly. LOWER EXTREMITIES: 2+ pulses, warm, No calf tenderness. Chronic stasis changes noted over both lower extremities. 3+ pitting edema. NEUROLOGICAL: Cranial nerves II-X intact. Normal speech. PSYCHIATRIC: Cooperative. Good eye contact. Appropriate mood and affect. SKIN: Warm, dry, normal turgor, no rashes or lesions noted, normal capillary refill. Laboratory Results - last 24 hr 11/18/17 11/18/17 11/18/17 13:52 13:52 14:35 WBC 10.2 H RBC 4.21 Hgb 13.0 Hct 39.9 MCV 94.7 MCH 30.9 MCHC 32.6 RDW 14.8 Plt Count 270 MPV 7.9 Absolute Neuts (auto) 9.4 Neutrophils % 92.4 H Neutrophils % (Manual) 90.9 H Band Neutrophils % 1.0 Lymphocytes % 3.9 L D Lymphocytes % (Manual) 5.1 L D Monocytes % 2.7 L Monocytes % (Manual) 3 L Eosinophils % 0.3 D Eosinophils % (Manual) 0.0 Basophils % 0.7 D Basophils % (Manual) 0.0 Myelocytes % (Man) 0 Promyelocytes % (Man) 0 Blast Cells % (Manual) 0 Nucleated RBC % 0 Metamyelocytes 0 Hypochromia 1+ Platelet Estimate Normal Polychromasia 1+ Poikilocytosis 0 Anisocytosis 1+ Macrocytosis 1+ VBG pH POC VBG pCO2 POC VBG pO2 Mixed VBG HCO3 Sodium Cancelled 139 Potassium Cancelled 4.3 Chloride Cancelled 100 Carbon Dioxide Cancelled 34 H Anion Gap Cancelled 5 L BUN Cancelled 22 H Creatinine Cancelled 0.9 Creat Clearance w eGFR Cancelled > 60 Random Glucose Cancelled 193 H Calcium Cancelled 9.0 Total Bilirubin Cancelled 0.4 AST Cancelled 19 ALT Cancelled 26 Alkaline Phosphatase Cancelled 43 L Creatine Kinase Cancelled Troponin I Cancelled B-Natriuretic Peptide Cancelled Total Protein Cancelled 5.8 L Albumin Cancelled 3.4 11/18/17 15:45 WBC RBC Hgb Hct MCV MCH MCHC RDW Plt Count MPV Absolute Neuts (auto) Neutrophils % Neutrophils % (Manual) Band Neutrophils % Lymphocytes % Lymphocytes % (Manual) Monocytes % Monocytes % (Manual) Eosinophils % Eosinophils % (Manual) Basophils % Basophils % (Manual) Myelocytes % (Man) Promyelocytes % (Man) Blast Cells % (Manual) Nucleated RBC % Metamyelocytes Hypochromia Platelet Estimate Polychromasia Poikilocytosis Anisocytosis Macrocytosis VBG pH 7.26 L POC VBG pCO2 73.9 H* POC VBG pO2 27.2 L Mixed VBG HCO3 32.3 H Sodium Potassium Chloride Carbon Dioxide Anion Gap BUN Creatinine Creat Clearance w eGFR Random Glucose Calcium Total Bilirubin AST ALT Alkaline Phosphatase Creatine Kinase Troponin I B-Natriuretic Peptide Total Protein Albumin ASSESSMENT/PLAN: The patient is a 67 yo f pmh DM, COPD, CHF, NEIL admitted for the treatment of COPD exacerbation. #SOB and cough 2/2 COPD exacerbation -s/p nebs, mg, medrol in ED -c/w IV medrol 40mg Q6H -pulmonology consult; Dr. Ruvalcaba -Nebs Q6 standing, Q4 PRN -ABX not indicated; no signs of infection -leukocytosis likely 2/2 home steroid use #Lymphedema/peripheral edema -TEDs -c/w home lasix #DM -ISS ACHS -BGM ACHS #FEN -no fluids indicated -lytes WNL, replete PRN -diabetic diet #prophy -heparin SQ 5k units TID #Dispo -admit med surg Visit type - Emergency Visit Emergency Visit: Yes ED Registration Date: 11/18/17 Care time: The patient presented to the Emergency Department on the above date and was hospitalized for further evaluation of their emergent condition. - New Patient This patient is new to me today: Yes Date on this admission: 11/18/17 - Critical Care Critical Care patient: No
[2017-11-18] MEDS ORDERED: methylPREDNISolone NA SUCC 40 MG/1 ML VIAL IVPUSH SCH (21:00)
[2017-11-18] MEDS ORDERED: INSULIN SLIDING SCALE (NOVOLOG) 1 VIAL SQ SCH (22:00)
[2017-11-18] MEDS: methylPREDNISolone NA SUCC 40 MG/1 ML VIAL IVPUSH SCH (22:04)
[2017-11-18] MEDS: RANITIDINE HCL 150 MG TABLET (FP) PO SCH (22:05)
[2017-11-18] MEDS: LACTOBACILLUS ACIDOPHILUS 1 TABLET PO SCH (22:05)
[2017-11-18] MEDS: MAGNESIUM HYDROX 2400MG/30ML ORAL SUSPENSION 30 ML CUP PO SCH (22:05)
[2017-11-18] MEDS: guaiFENesin 600 MG TABLET.ER (FP) PO SCH (22:05)
[2017-11-18] MEDS: ATORVASTATIN CA 20 MG TABLET (FP) PO SCH (22:05)
[2017-11-18] MEDS: HEPARIN NA (PORCINE) 5,000 UNITS/ML 1ML VIAL SQ SCH (22:05)
[2017-11-18] MEDS: CALCIUM 500MG/VIT-D 200 UNITS COMBO TABLET (FP) PO SCH (22:05)
[2017-11-18] MEDS: PSYLLIUM 5.85 GM PACKET PO SCH (22:06)
[2017-11-18] MEDS: INSULIN (LEVEMIR) 100 UNITS/ML UNITS SQ SCH (22:07)
[2017-11-19] MEDS: methylPREDNISolone NA SUCC 40 MG/1 ML VIAL IVPUSH SCH ×4 (03:23→21:00)
[2017-11-19] MEDS: ALBUTEROL SO4 2.5/IPRATROPIUM 0.5 INH SOL 3 ML VIAL.NEB. NEB PRN (05:41)
[2017-11-19] MEDS: HEPARIN NA (PORCINE) 5,000 UNITS/ML 1ML VIAL SQ SCH ×3 (05:58→21:01)
[2017-11-19] MEDS: INSULIN (NOVOLOG) ASPART 100 UNITS/ML 10ML VIAL SQ SCH ×2 (06:01→13:41)
[2017-11-19 06:55] LABS: HEMATOCRIT 38.9 % (32.4-45.2); HEMOGLOBIN 13.1 GM/dL (10.7-15.3); MCH 31.3 pg (25.7-33.7); MCHC 33.6 g/dl (32.0-36.0); MEAN CELL VOLUME 93.2 fl (80-96); MEAN PLT VOLUME 7.9 fl (7.5-11.1); PLATELET COUNT 275 K/MM3 (134-434); RBC 4.17 M/mm3 (3.60-5.2); RDW 14.5 % (11.6-15.6)
[2017-11-19 07:23] LABS: ALBUMIN 3.3 g/dl (3.4-5.0); BLOOD UREA NITROGEN 27 mg/dL (7-18); CHLORIDE 96 mmol/L (98-107); PHOSPHOROUS 3.8 mg/dL (2.5-4.9); POTASSIUM 4.2 mmol/L (3.5-5.1); SGOT/AST 16 U/L (15-37); SODIUM 137 mmol/L (136-145)
[2017-11-19] MEDS: ALBUTEROL SO4 2.5/IPRATROPIUM 0.5 INH SOL 3 ML VIAL.NEB. NEB SCH ×5 (07:25→20:20)
[2017-11-19 07:26] LABS: ALK PHOS 45 U/L (45-117); ANION GAP 8 (8-16); BILIRUBIN,TOTAL 0.4 mg/dL (0.2-1.0); CO2 33 mmol/L (21-32); CREATININE 0.9 mg/dL (0.55-1.02); GLUCOSE,RANDOM 213 mg/dL (74-106); MAGNESIUM 2.6 mg/dL (1.8-2.4); SGPT/ALT 29 U/L (12-78); TOT PROT 6.1 g/dl (6.4-8.2)
[2017-11-19 07:49] LABS: INR 0.89 (0.82-1.09); PROTHROMBIN TIME (PATIENT) 10.1 SEC (9.7-13.0)
--- NOTE | 2017-11-19 09:36 | EKG ---
Test Reason : Blood Pressure : / mmHG Vent. Rate : 058 BPM Atrial Rate : 058 BPM P-R Int : 162 ms QRS Dur : 164 ms QT Int : 442 ms P-R-T Axes : 049 -23 029 degrees QTc Int : 433 ms SINUS BRADYCARDIA RIGHT BUNDLE BRANCH BLOCK ABNORMAL ECG Confirmed by EUNICE CLOUD MD ([id number]) on 11/19/2017 9:35:57 AM Referred By: Confirmed By:EUNICE CLOUD MD
[2017-11-19] MEDS: FUROSEMIDE 40 MG/4 ML INJECTABLE VIAL IVPUSH SCH (10:15)
[2017-11-19] MEDS: LACTOBACILLUS ACIDOPHILUS 1 TABLET PO SCH ×2 (10:15→21:01)
[2017-11-19] MEDS: amLODIPine BESYLATE 5 MG TABLET (FP) PO SCH (10:16)
[2017-11-19] MEDS: LISINOPRIL 20 MG TABLET (FP) PO SCH (10:16)
[2017-11-19] MEDS: RANITIDINE HCL 150 MG TABLET (FP) PO SCH ×2 (10:16→21:01)
[2017-11-19] MEDS: LORATADINE 10 MG TABLET PO SCH (10:16)
[2017-11-19] MEDS: guaiFENesin 600 MG TABLET.ER (FP) PO SCH ×2 (10:17→21:01)
[2017-11-19] MEDS: DOCUSATE SODIUM 100 MG CAPSULE (FP) PO SCH (10:17)
[2017-11-19] MEDS: CALCIUM 500MG/VIT-D 200 UNITS COMBO TABLET (FP) PO SCH ×2 (10:17→21:01)
[2017-11-19] MEDS: POTASSIUM CHLORIDE TABS 10 MEQ TABLET.ER (FP) PO SCH (10:17)
[2017-11-19] MEDS: POLYETHYLENE GLYCOL 3350 119 GM BTL PO SCH (10:17)
[2017-11-19] MEDS: MAGNESIUM HYDROX 2400MG/30ML ORAL SUSPENSION 30 ML CUP PO SCH ×2 (10:18→21:01)
[2017-11-19] MEDS: PSYLLIUM 5.85 GM PACKET PO SCH ×2 (10:18→21:01)
[2017-11-19] MEDS: ROFLUMILAST 500 MCG TABLET PO SCH (10:19)
[2017-11-19] MEDS: FLUTICASONE PROP 0.05% 16 GM NASAL SPRAY NS SCH (13:40)
--- NOTE | 2017-11-19 14:54 | CON.PULM ---
Consult Consult Specialty:: PULMONARY Referred by:: ALANNA Reason for Consultation:: COPD - History of Present Illness Chief Complaint: SOB/CHEST CONGESTION History of Present Illness: 67 YOF with h/o COPD on 3L home O2, IDDM, CHF, NEIL on nocturnal CPAP, chronic lymphedema, venous stasis presenting with productive cough and shortness of breath for several days. The patient is complaining of a persistent cough productive of white sputum. Patient is complaining of worsening shortness of breath despite using 3L O2 at home. Patient states she has been eating and drinking normally at home. The patient's last admission for similar symptoms of dyspnea and respiratory failure was in September 2017. She states compliance with meds and no recent weight gain. She denies chest pain, headache and dizziness. Denies fever, chills, nausea, vomit, diarrhea and constipation. Denies dysuria, frequency, urgency and hematuria. - History Source History Provided By: Patient, Medical Record Limitations to Obtaining History: No Limitations - Past Medical History MULE TENDER: No: Alzheimer's Cardio/Vascular: Yes: HTN, Hyperlipdemia, Other (Possible CHF, Pt states she's unsure but states CHF sounds familiar to her when asked if she has it). No: AFIB Pulmonary: Yes: COPD Gastrointestinal: No: Cancer Hepatobiliary: No: Cirrhosis Renal/: No: Renal Failure Reproductive: Yes: Postmenopausal Heme/Onc: No: Anemia Psych: No: Addictions Endocrine: Yes: Diabetes Mellitus Dermatology: Yes: Cellulitis - Past Surgical History Past Surgical History: Yes: Tonsillectomy, Vein Stripping/Ligation - Alcohol/Substance Use Hx Alcohol Use: No - Smoking History Smoking history: Former smoker Have you smoked in the past 12 months: No If you are a former smoker, when did you quit?: 2003 - Social History Place of : [facility] History of Recent Travel: No Home Medications - Allergies Allergies/Adverse Reactions: Allergies Allergy/AdvReac Type Severity Reaction Status Date / Time tigecycline Allergy Mild Verified 11/18/17 18:49 - Home Medications Home Medications: Ambulatory Orders Albuterol Sulfate [Proair Hfa] 2 inh IN QID PRN 10/17/17 Amlodipine Besylate [Norvasc -] 1 tab PO DAILY 10/17/17 Aspirin [ASA -] 81 mg PO DAILY 10/17/17 Calcium Carbonate/Vitamin D3 [Calcium 600-Vit D3 400 Tablet] 2 each PO DAILY 08/01 Furosemide [Lasix] 60 mg PO DAILY 10/17/17 Guaifenesin/Pseudoephedrne HCl [Mucinex D ER 600-60 mg Tablet] 1 each PO BID 08/01 Insulin Aspart [Novolog Flexpen] 6 unit SQ TID 10/17/17 Insulin Glargine,Hum.rec.anlog [Lantus Solostar] 22 units SQ HS 10/17/17 Insulin NPH Hum/Reg Insulin Hm [Novolin 70-30 100 Unit/ml Vial] 1 unit SQ PRN PRN 10/17/17 Krill/Om-3/Dha/Epa/Phospho/Ast [[place]-3 Krill Oil 300 mg Sfgl] 1 each PO DAILY 10/17/17 Lisinopril [Prinivil -] 40 mg PO DAILY 10/17/17 Loratadine 10 mg PO DAILY 10/17/17 Magnesium Hydroxide [Milk of Magnesia] 30 ml PO BID PRN 10/17/17 Polyethylene Glycol 3350 [Miralax 119 gm Btl -] 1 packet PO BID 10/17/17 Potassium Chloride [K-Dur -] 1 tablet PO BID 10/17/17 Psyllium Husk (with Sugar) [Metamucil Packet] 3.4 gm PO BID 10/17/17 Ranitidine [Zantac -] 1 tab PO BID 10/17/17 Refresh P.M 1 applic OS BID 10/17/17 Roflumilast [Daliresp] 500 mcg PO DAILY 10/17/17 Saliva Stimulant Comb. No.2 [Biotene Oralbalance] 1 cap PO BID 10/17/17 Sennosides [Senna] 2 tab PO HS PRN 10/17/17 Simethicone 180 mg PO TID 10/17/17 Simvastatin 20 mg PO HS 10/17/17 Acetylcysteine [Nac] 600 mg PO BID 11/18/17 Albuterol Sulfate [Proventil HFA Inhaler -] 1 puff IH Q8H 11/18/17 Bisacodyl Suppository [Dulcolax Suppository -] 1 supp [place] DAILY PRN 11/18/17 Budesonide/Formeterol Fumarate [SYMBICORT 160/4.5mcg -] 1 puff IH DAILY Bupropion HCl [Bupropion HCl ER] 150 mg PO BID 11/18/17 Calcium Carbonate/Vitamin D3 [Calcium 600 + Vit D 400 Softgl] 1 tab PO BID 11/18 Cephalexin [Keflex] 500 mg PO BID 11/18/17 Docusate Sodium [Colace -] 300 mg PO HS 11/18/17 Facial Mask [Nexcare All Purpose Mask] 1 adh.patch .ROUTE DAILY 11/18/17 Fluticasone Propionate [Flovent Diskus] 50 mcg IH DAILY 11/18/17 Furosemide 80 mg PO BID 11/18/17 Lactobacillus Acidophilus [Bacid -] 1 tab PO BID 11/18/17 Prednisone 5 mg PO DAILY 11/18/17 Sodium Phosphate,[place]-Dibasic [Fleet Enema] 133 ml MS DAILY PRN 11/18/17 predniSONE [Deltasone -] 15 mg PO DAILY 11/18/17 Family Disease History - Family Disease History Family History: Unremarkable Review of Systems - Review of Systems Constitutional: denies: Fever Eyes: denies: Blurred Vision HENT: denies: Difficult Swallowing Neck: denies: Decreased ROM Cardiovascular: reports: Shortness of Breath. denies: Chest Pain Respiratory: reports: Cough, Exercise Intolerance, Orthopnea, SOB on Exertion. denies: Hemoptysis, Wheezing Gastrointestinal: denies: Abdominal Pain Genitourinary: denies: Burning Breasts: reports: No Symptoms Reported Physical Exam Vital Sings: Vital Signs Temperature 98.2 F 11/19/17 05:00 Pulse Rate 56 L 11/19/17 05:00 Respiratory Rate 18 11/19/17 05:00 Blood Pressure 140/66 11/19/17 05:00 O2 Sat by Pulse Oximetry (%) 98 11/18/17 21:00 Constitutional: Yes: Calm Eyes: Yes: EOM Intact HENT: Yes: Normocephalic Neck: Yes: Trachea Midline Cardiovascular: Yes: Regular Rate and Rhythm Respiratory: Yes: Rhonchi, Wheezes Gastrointestinal: Yes: Soft, Abdomen, Obese Edema: LLE: 2+, RLE: 2+ Integumentary: Yes: WNL Neurological: Yes: WNL Psychiatric: Yes: WNL Labs: CBC, BMP 11/19/17 06:30 11/19/17 06:30 rest reviewed Imaging - Results Chest X-ray: Report Reviewed, Image Reviewed Problem List - Problems (1) COPD exacerbation Code(s): J44.1 - CHRONIC OBSTRUCTIVE PULMONARY DISEASE W (ACUTE) EXACERBATION (2) Acute on chronic respiratory failure with hypoxia and hypercapnia Code(s): J96.21 - ACUTE AND CHRONIC RESPIRATORY FAILURE WITH HYPOXIA; J96.22 - ACUTE AND CHRONIC RESPIRATORY FAILURE WITH HYPERCAPNIA (3) CHF (congestive heart failure) Code(s): I50.9 - HEART FAILURE, UNSPECIFIED (4) Diabetes Code(s): E11.9 - TYPE 2 DIABETES MELLITUS WITHOUT COMPLICATIONS (5) Hypertension Code(s): I10 - ESSENTIAL (PRIMARY) HYPERTENSION (6) Sleep apnea Code(s): G47.30 - SLEEP APNEA, UNSPECIFIED Assessment/Plan O2 N/C NIPPV AT NIGHT( PT HAS HER OWN) BRONCHODILATORS TRIAL OF ANTIBIOTICS/IV STEROIDS KEEP EUVOLEMIC/NEG BALANCE DAILY WEIGHTS/SPUTUM CULTURE GLYCEMIC CONTROL DVT PROPH PATIENT CT CHEST/ECHO LAST MONTH NO NEED TO REPEAT CONSIDER CARDIO ELADIA DRAKE MD
[2017-11-19] MEDS: INSULIN SLIDING SCALE (NOVOLOG) 1 VIAL SQ SCH ×2 (17:31→21:14)
--- NOTE | 2017-11-19 19:00 | PN ---
Teaching Attending Note Name of Resident: Laverne Lauren ATTENDING PHYSICIAN STATEMENT I saw and evaluated the patient. I reviewed the resident's note and discussed the case with the resident. I agree with the resident's findings and plan as documented with exceptions below. SUBJECTIVE: Patient seen and examined, breathing improved, leg findings unchanged. OBJECTIVE: Vital Signs Period Temp Pulse Resp BP Sys/Joya Pulse Ox Last 24 Hr 97.8 F-98.6 F 56-82 18-22 130-148/59-82 98 Intake & Output 11/16/17 11/17/17 11/18/17 11/19/17 23:59 23:59 23:59 23:59 Intake Total 370 240 Balance 370 240 Weight 280 lb General: sitting in bed, no acute distress, able to talk in full sentences chest: improved air entry, decreased scattered expiratory wheezing Extremities: LE edema and venous stasis unchanged Home Medications Medication Instructions Recorded RX: Albuterol Sulfate [Proair Hfa] 2 inh IN QID PRN 10/17/17 RX: Amlodipine Besylate [Norvasc -] 1 tab PO DAILY 10/17/17 RX: Aspirin [ASA -] 81 mg PO DAILY 10/17/17 RX: Calcium Carbonate/Vitamin D3 2 each PO DAILY 10/17/17 [Calcium 600-Vit D3 400 Tablet] RX: Furosemide [Lasix] 60 mg PO DAILY 10/17/17 RX: Guaifenesin/Pseudoephedrne HCl 1 each PO BID 10/17/17 [Mucinex D ER 600-60 mg Tablet] RX: Insulin Aspart [Novolog 6 unit SQ TID 10/17/17 Flexpen] RX: Insulin Glargine,Hum.rec.anlog 22 units SQ HS 10/17/17 [Lantus Solostar] RX: Insulin NPH Hum/Reg Insulin Hm 1 unit SQ PRN PRN 10/17/17 [Novolin 70-30 100 Unit/ml Vial] RX: Krill/Om-3/Dha/Epa/Phospho/Ast 1 each PO DAILY 10/17/17 [[place]-3 Krill Oil 300 mg Sfgl] RX: Lisinopril [Prinivil -] 40 mg PO DAILY 10/17/17 RX: Loratadine 10 mg PO DAILY 10/17/17 RX: Magnesium Hydroxide [Milk of 30 ml PO BID PRN 10/17/17 Magnesia] RX: Polyethylene Glycol 3350 1 packet PO BID 10/17/17 [Miralax 119 gm Btl -] RX: Potassium Chloride [K-Dur -] 1 tablet PO BID 10/17/17 RX: Psyllium Husk (with Sugar) 3.4 gm PO BID 10/17/17 [Metamucil Packet] RX: Ranitidine [Zantac -] 1 tab PO BID 10/17/17 RX: Roflumilast [Daliresp] 500 mcg PO DAILY 10/17/17 RX: Saliva Stimulant Comb. No.2 1 cap PO BID 10/17/17 [Biotene Oralbalance] RX: Sennosides [Senna] 2 tab PO HS PRN 10/17/17 RX: Simethicone 180 mg PO TID 10/17/17 RX: Simvastatin 20 mg PO HS 10/17/17 Refresh P.M 1 applic OS BID 10/17/17 Acetylcysteine [Nac] 600 mg PO BID 11/18/17 Albuterol Sulfate [Proventil HFA 1 puff IH Q8H 11/18/17 Inhaler -] Budesonide/Formeterol Fumarate 1 puff IH DAILY 11/18/17 [SYMBICORT 160/4.5mcg -] Bupropion HCl [Bupropion HCl ER] 150 mg PO BID 11/18/17 Calcium Carbonate/Vitamin D3 1 tab PO BID 11/18/17 [Calcium 600 + Vit D 400 Softgl] Cephalexin [Keflex] 500 mg PO BID 11/18/17 Docusate Sodium [Colace -] 300 mg PO HS 11/18/17 Facial Mask [Nexcare All Purpose 1 adh.patch .ROUTE DAILY 11/18/17 Mask] Fluticasone Propionate [Flovent 50 mcg IH DAILY 11/18/17 Diskus] Lactobacillus Acidophilus [Bacid -] 1 tab PO BID 11/18/17 RX: Bisacodyl Suppository 1 supp [place] DAILY PRN 11/18/17 [Dulcolax Suppository -] RX: Furosemide 80 mg PO BID 11/18/17 RX: Prednisone 5 mg PO DAILY 11/18/17 RX: predniSONE [Deltasone -] 20 mg PO DAILY 11/18/17 Sodium Phosphate,[place]-Dibasic 133 ml [place] DAILY PRN 11/18/17 [Fleet Enema] Guaifenesin/Dextromethorphan 600 mg PO BID 11/19/17 [Mucinex Dm ER 1,200-60 mg Tab] Active Medications Albuterol/Ipratropium (Duoneb -) 1 amp NEB RQID [facility] Last Admin: 11/19/17 15:46 Dose: 1 amp Albuterol/Ipratropium (Duoneb -) 1 amp NEB Q4H PRN PRN Reason: SHORTNESS OF BREATH Last Admin: 11/19/17 05:41 Dose: 1 amp Amlodipine Besylate (Norvasc -) 5 mg PO DAILY [facility] Last Admin: 11/19/17 10:16 Dose: 5 mg Atorvastatin Calcium (Lipitor -) 20 mg PO HS [facility] Last Admin: 11/18/17 22:05 Dose: 20 mg Bisacodyl (Dulcolax Suppository -) 10 mg RC Q24H PRN PRN Reason: CONSTIPATION Bupropion HCl (Wellbutrin Xl -) 150 mg PO DAILY [facility] Last Admin: 11/19/17 10:18 Dose: 150 mg Calcium Carbonate/Cholecalciferol (Os-Kenny 500+D -) 1 tab PO BID [facility] Last Admin: 11/19/17 10:17 Dose: 1 tab Docusate Sodium (Colace -) 100 mg PO DAILY [facility] Last Admin: 11/19/17 10:17 Dose: 100 mg Fluticasone Propionate (Flonase -) 2 spray NS DAILY [facility] Last Admin: 11/19/17 13:40 Dose: 2 spray Furosemide (Lasix Injection -) 40 mg IVPUSH DAILY [facility] Last Admin: 11/19/17 10:15 Dose: 40 mg Guaifenesin (Mucinex -) 600 mg PO BID [facility] Last Admin: 11/19/17 10:17 Dose: 600 mg Heparin Sodium (Porcine) (Heparin -) 5,000 unit SQ TID [facility] Last Admin: 11/19/17 16:03 Dose: Not Given Insulin Aspart (Novolog Vial Sliding Scale -) 1 vial SQ ACHS [facility]; Protocol Last Admin: 11/19/17 17:31 Dose: 2 units Insulin Detemir (Levemir Vial) 22 units SQ HS [facility] Last Admin: 11/18/17 22:07 Dose: 22 units Lactobacillus Acidophilus (Bacid -) 1 tab PO BID [facility] Last Admin: 11/19/17 10:15 Dose: 1 tab Lisinopril (Prinivil) 40 mg PO DAILY [facility] Last Admin: 11/19/17 10:16 Dose: 40 mg Loratadine (Claritin -) 10 mg PO DAILY [facility] Last Admin: 11/19/17 10:16 Dose: 10 mg Magnesium Hydroxide (Milk Of Magnesia -) 30 ml PO BID [facility] Last Admin: 11/19/17 10:18 Dose: 30 ml Methylprednisolone Sodium Succinate (Solu-Medrol -) 40 mg IVPUSH Q6H-IV [facility] Last Admin: 11/19/17 16:04 Dose: 40 mg Polyethylene Glycol (Miralax (For Daily Use) -) 17 gm PO DAILY [facility] Last Admin: 11/19/17 10:17 Dose: 17 gm Potassium Chloride (K-Dur -) 20 meq PO DAILY [facility] Last Admin: 11/19/17 10:17 Dose: 20 meq Psyllium Hydrophilic Mucilloid (Metamucil (Sugar-Free) -) 5.85 gm PO BID [facility] Last Admin: 11/19/17 10:18 Dose: 5.85 gm Ranitidine HCl (Zantac -) 150 mg PO BID [facility] Last Admin: 11/19/17 10:16 Dose: 150 mg Roflumilast (Daliresp -) 500 mcg PO DAILY [facility] Last Admin: 11/19/17 10:19 Dose: 500 mcg Saliva Substitute ([place] Solution -) 1 applic MM DAILY [facility] Senna (Senna -) 2 tab PO HS PRN PRN Reason: CONSTIPATION Simethicone (Mylicon -) 160 mg PO Q8H PRN PRN Reason: GAS Laboratory Results - last 24 hr 11/19/17 11/19/17 11/19/17 05:57 06:30 06:30 WBC 6.0 RBC 4.17 Hgb 13.1 Hct 38.9 MCV 93.2 MCH 31.3 MCHC 33.6 RDW 14.5 Plt Count 275 MPV 7.9 PT with INR 10.10 INR 0.89 PTT (Actin FS) 31.0 Sodium Potassium Chloride Carbon Dioxide Anion Gap BUN Creatinine Creat Clearance w eGFR POC Glucometer 223 Random Glucose Calcium Phosphorus Magnesium Total Bilirubin AST ALT Alkaline Phosphatase Total Protein Albumin 11/19/17 11/19/17 11/19/17 06:30 12:33 17:29 WBC RBC Hgb Hct MCV MCH MCHC RDW Plt Count MPV PT with INR INR PTT (Actin FS) Sodium 137 Potassium 4.2 Chloride 96 L Carbon Dioxide 33 H Anion Gap 8 BUN 27 H Creatinine 0.9 Creat Clearance w eGFR > 60 POC Glucometer 258 166 Random Glucose 213 H Calcium 9.0 Phosphorus 3.8 Magnesium 2.6 H Total Bilirubin 0.4 AST 16 ALT 29 Alkaline Phosphatase 45 Total Protein 6.1 L Albumin 3.3 L ASSESSMENT AND PLAN: 67yo F wtih PMH COPD on home o2 2L NC, NEIL, CHF, DM, chronic venous stasis, recent R lung nodule sent from [facility] [place] with progressively worsening SOB and productive cough of white sputum, recently admitted with COPD exacerbation/ Diastolic HF comes with similar complaints while tapered on prednisone to 20 mg. -Acute on chronic hypoxic/hypercapneic respiratory failure -Acute COPD exacerbation -Chronic diastolic heart failure -Oxygen/steroid dependent COPD -IDDM -Chronic venous stasis -Right lung nodule Plan: Improved. taper solumedrol to 40 mg IV q6h Standing and prn nebs, Pulmonary input noted BIpap hs 16/8. Lasix 40 mg IV daily for now. Home levemir, ISS and diabetic diet. No clinical evidence of infection, hold off antibiotics and monitor for now. Compression stockings, recent courses of antibiotics, seen by Dr. Camilo on recent visit, Hold off additional antibiotics. DVTPPx with heparin Dispo back to [facility] once clinically improved. Plan discussed with patient in detail, all questions answered. -
[2017-11-19] MEDS ORDERED: PT OWN MED DRAWER 7, Y5N ONE (20:54)
[2017-11-19] MEDS: ATORVASTATIN CA 20 MG TABLET (FP) PO SCH (21:01)
[2017-11-19] MEDS: INSULIN (LEVEMIR) 100 UNITS/ML UNITS SQ SCH (21:10)
[2017-11-19] MEDS ORDERED: INSULIN (NOVOLOG) ASPART 100 UNITS/ML 10ML VIAL ONE (21:13)
[2017-11-19] MEDS: LYTES/YERBA SANTA 240 ML BOTTLE MM SCH (21:14)
[2017-11-20] MEDS: methylPREDNISolone NA SUCC 40 MG/1 ML VIAL IVPUSH SCH ×3 (04:10→21:07)
[2017-11-20] MEDS: HEPARIN NA (PORCINE) 5,000 UNITS/ML 1ML VIAL SQ SCH ×3 (06:03→21:06)
[2017-11-20] MEDS: INSULIN SLIDING SCALE (NOVOLOG) 1 VIAL SQ SCH ×4 (06:30→21:07)
--- NOTE | 2017-11-20 07:33 | PN ---
Physical Exam: SUBJECTIVE: Patient seen and examined at bedside this morning. [place] better with breathing improved. Was unable to use the BIPap overnight. Continues to have leg pain in both legs, swelling and discoloration remain the same. Denies fevers, chills, chest pain, nausea, vomiting, diarrhea, constipation OBJECTIVE: Vital Signs Period Temp Pulse Resp BP Sys/Joya Pulse Ox Last 24 Hr 97.8 F-98.6 F 56-82 18-22 130-148/59-82 98 Intake & Output 11/16/17 11/17/17 11/18/17 11/19/17 23:59 23:59 23:59 23:59 Intake Total 370 240 Balance 370 240 Weight 280 lb GENERAL: Awake, alert, and fully oriented, in no acute distress. EYES: Left eye lid lag, Disconjugate gaze OROPHARYNX: clear without exudates, Nonerythematous, Dry mucous membranes LUNGS: Poor airway entry but improved from admission, Wheezes heard throughout, on 3L O2 Via nasal canal HEART: Regular rate and rhythm, normal S1 and S2, Systolic ejection murmur across the pericardium, No rubs or gallops. ABDOMEN: Soft, nontender, not distended, normoactive bowel sounds LOWER EXTREMITIES: 2+ peripheral edema. Discoloration, Varicose veins present, 2 + pulses, warm, No calf tenderness. Laboratory Results - last 24 hr 11/19/17 11/19/17 11/19/17 05:57 06:30 06:30 WBC 6.0 RBC 4.17 Hgb 13.1 Hct 38.9 MCV 93.2 MCH 31.3 MCHC 33.6 RDW 14.5 Plt Count 275 MPV 7.9 PT with INR 10.10 INR 0.89 PTT (Actin FS) 31.0 Sodium Potassium Chloride Carbon Dioxide Anion Gap BUN Creatinine Creat Clearance w eGFR POC Glucometer 223 Random Glucose Calcium Phosphorus Magnesium Total Bilirubin AST ALT Alkaline Phosphatase Total Protein Albumin 11/19/17 11/19/17 11/19/17 06:30 12:33 17:29 WBC RBC Hgb Hct MCV MCH MCHC RDW Plt Count MPV PT with INR INR PTT (Actin FS) Sodium 137 Potassium 4.2 Chloride 96 L Carbon Dioxide 33 H Anion Gap 8 BUN 27 H Creatinine 0.9 Creat Clearance w eGFR > 60 POC Glucometer 258 166 Random Glucose 213 H Calcium 9.0 Phosphorus 3.8 Magnesium 2.6 H Total Bilirubin 0.4 AST 16 ALT 29 Alkaline Phosphatase 45 Total Protein 6.1 L Albumin 3.3 L Active Medications Albuterol/Ipratropium (Duoneb -) 1 amp NEB RQID [facility] Last Admin: 11/19/17 15:46 Dose: 1 amp Albuterol/Ipratropium (Duoneb -) 1 amp NEB Q4H PRN PRN Reason: SHORTNESS OF BREATH Last Admin: 11/19/17 05:41 Dose: 1 amp Amlodipine Besylate (Norvasc -) 5 mg PO DAILY [facility] Last Admin: 11/19/17 10:16 Dose: 5 mg Atorvastatin Calcium (Lipitor -) 20 mg PO HS [facility] Last Admin: 11/18/17 22:05 Dose: 20 mg Bisacodyl (Dulcolax Suppository -) 10 mg RC Q24H PRN PRN Reason: CONSTIPATION Bupropion HCl (Wellbutrin Xl -) 150 mg PO DAILY [facility] Last Admin: 11/19/17 10:18 Dose: 150 mg Calcium Carbonate/Cholecalciferol (Os-Kenny 500+D -) 1 tab PO BID [facility] Last Admin: 11/19/17 10:17 Dose: 1 tab Docusate Sodium (Colace -) 100 mg PO DAILY [facility] Last Admin: 11/19/17 10:17 Dose: 100 mg Fluticasone Propionate (Flonase -) 2 spray NS DAILY [facility] Last Admin: 11/19/17 13:40 Dose: 2 spray Furosemide (Lasix Injection -) 40 mg IVPUSH DAILY [facility] Last Admin: 11/19/17 10:15 Dose: 40 mg Guaifenesin (Mucinex -) 600 mg PO BID [facility] Last Admin: 11/19/17 10:17 Dose: 600 mg Heparin Sodium (Porcine) (Heparin -) 5,000 unit SQ TID [facility] Last Admin: 11/19/17 16:03 Dose: Not Given Insulin Aspart (Novolog Vial Sliding Scale -) 1 vial SQ ACHS [facility]; Protocol Last Admin: 11/19/17 17:31 Dose: 2 units Insulin Detemir (Levemir Vial) 22 units SQ HS [facility] Last Admin: 11/18/17 22:07 Dose: 22 units Lactobacillus Acidophilus (Bacid -) 1 tab PO BID [facility] Last Admin: 11/19/17 10:15 Dose: 1 tab Lisinopril (Prinivil) 40 mg PO DAILY [facility] Last Admin: 11/19/17 10:16 Dose: 40 mg Loratadine (Claritin -) 10 mg PO DAILY [facility] Last Admin: 11/19/17 10:16 Dose: 10 mg Magnesium Hydroxide (Milk Of Magnesia -) 30 ml PO BID [facility] Last Admin: 11/19/17 10:18 Dose: 30 ml Methylprednisolone Sodium Succinate (Solu-Medrol -) 40 mg IVPUSH Q6H-IV [facility] Last Admin: 11/19/17 16:04 Dose: 40 mg Polyethylene Glycol (Miralax (For Daily Use) -) 17 gm PO DAILY [facility] Last Admin: 11/19/17 10:17 Dose: 17 gm Potassium Chloride (K-Dur -) 20 meq PO DAILY [facility] Last Admin: 11/19/17 10:17 Dose: 20 meq Psyllium Hydrophilic Mucilloid (Metamucil (Sugar-Free) -) 5.85 gm PO BID [facility] Last Admin: 11/19/17 10:18 Dose: 5.85 gm Ranitidine HCl (Zantac -) 150 mg PO BID [facility] Last Admin: 11/19/17 10:16 Dose: 150 mg Roflumilast (Daliresp -) 500 mcg PO DAILY [facility] Last Admin: 11/19/17 10:19 Dose: 500 mcg Saliva Substitute ([place] Solution -) 1 applic MM DAILY [facility] Senna (Senna -) 2 tab PO HS PRN PRN Reason: CONSTIPATION Simethicone (Mylicon -) 160 mg PO Q8H PRN PRN Reason: GAS ASSESSMENT/PLAN: 67 y/o female resident of [facility] with a PMHx of IDDM, COPD on 1-3L of O2 at home, NEIL on Bipap, ? CHF, admitted for COPD exacerbation. 1. SOB and wheezing 2/2 COPD Exacerbation - Afebrile, WBC 10.2 on admission, 6.0 this morning - CXR: No acute cardiopulmonary pathology - Continue on supplemental O2 @ 3L via nasal cannula - Taper Iv Salumederol 40mg q6H - Duonebs q6h standing, q4H PRN - Pulmonology (Dr. Horn) Consulted: O2 N/C NIPPV AT NIGHT (PT HAS HER OWN) BRONCHODILATORS, TRIAL OF ANTIBIOTICS/IV STEROIDS, KEEP EUVOLEMIC/NEG BALANCE, DAILY WEIGHTS/SPUTUM CULTURE, PATIENT CT CHEST/ECHO LAST MONTH NO NEED TO REPEAT - Bipap checked by nursing staff, settings 30/12 2. CHF - Continue Furosemide 40 mg IVPUSH DAILY [facility] 3. HTN - Continue home Norvasc 5mg PO Daily - Continue home Lisinopril 40mg PO Daily 4. Peripheral Edema 2/2 Chronic venous stasis - JANELLE Stockings 5. NEIL - Home Bipap at night, settings 16 6. IDDM - BGM ACHS - Continue Insulin Aspart 1 vial SQ ACHS [facility]; Protocol - Continue Insulin Detemir 22 units SQ HS [facility] 7. Chronic Constipation - Continue Home Colace, Bisacodyl suppository, Fleet enema, Miralax, Milk of magnesia 8. HLD - Continue home Simvastatin 20mg PO HS 9. FEN - No fluids indicated - Electrolytes WNL - Diabetic diet 10 PPx - Heparin 5000 SubQ TID Visit type - Emergency Visit Emergency Visit: No - New Patient This patient is new to me today: No - Critical Care Critical Care patient: No
[2017-11-20] MEDS: ALBUTEROL SO4 2.5/IPRATROPIUM 0.5 INH SOL 3 ML VIAL.NEB. NEB SCH ×3 (07:43→21:32)
--- NOTE | 2017-11-20 09:07 | PN ---
Physical Exam: SUBJECTIVE: Patient seen and examined at bedside. She was ambulating with NC on , stated her breathing and cough have improved. Urination and BM are of no issue. OBJECTIVE: Vital Signs Period Temp Pulse Resp BP Sys/Joya Pulse Ox Last 24 Hr 97.6 F-98.7 F 55-82 20-22 136-148/59-82 96 GENERAL: The patient is awake, alert, and fully oriented, in no acute distress. LUNGS: b/l wheezing (baseline) HEART:RRR, S1, S2 w/ ejection murmur ABDOMEN: Soft,ND, NT, normoactive bowel sounds, no guarding, no rebound, no hepatosplenomegaly, no masses. EXTREMITIES: b/l compression stocking on No labs in the last 24 hours ASSESSMENT/PLAN: 67 yo F admitted to med-surg for acute on chronic hypoxemic respiratory failure. Acute on chronic hypoxemic respiratory failure: 2/2 COPD + possible CHF exacerbations. Taper solumedrol to 40mg BID. Cont. change standing lorena to TID and cont. PRN neb. Cont. bipap at night and NC O2 2L during the day. IDDM: cont BGM, levemir and ISS Chronic venous stasis: no sign of infection, cont. compression stocking R lung nodule: f/u with pulmonary as outpt. dvt ppx: heparin dispo: dc to [facility] pending clinical improvement. Jose Real PGY3 [phone] Visit type - Emergency Visit Emergency Visit: No - New Patient This patient is new to me today: Yes Date on this admission: 11/21/17 - Critical Care Critical Care patient: No - Discharge Referral Referred to [facility] Med P.C.: No
[2017-11-20] MEDS ORDERED: PT OWN MED DRAWER 7, Y5N ONE ×2 (09:10→21:02)
[2017-11-20] MEDS: LACTOBACILLUS ACIDOPHILUS 1 TABLET PO SCH ×2 (09:33→21:06)
[2017-11-20] MEDS: amLODIPine BESYLATE 5 MG TABLET (FP) PO SCH (09:33)
[2017-11-20] MEDS: LORATADINE 10 MG TABLET PO SCH (09:33)
[2017-11-20] MEDS: LISINOPRIL 20 MG TABLET (FP) PO SCH (09:33)
[2017-11-20] MEDS: guaiFENesin 600 MG TABLET.ER (FP) PO SCH ×2 (09:34→21:06)
[2017-11-20] MEDS: FUROSEMIDE 40 MG/4 ML INJECTABLE VIAL IVPUSH SCH (09:34)
[2017-11-20] MEDS: DOCUSATE SODIUM 100 MG CAPSULE (FP) PO SCH (09:34)
[2017-11-20] MEDS: RANITIDINE HCL 150 MG TABLET (FP) PO SCH ×2 (09:34→21:06)
[2017-11-20] MEDS: POTASSIUM CHLORIDE TABS 10 MEQ TABLET.ER (FP) PO SCH (09:34)
[2017-11-20] MEDS: CALCIUM 500MG/VIT-D 200 UNITS COMBO TABLET (FP) PO SCH ×2 (09:34→21:06)
[2017-11-20] MEDS: MAGNESIUM HYDROX 2400MG/30ML ORAL SUSPENSION 30 ML CUP PO SCH ×2 (09:34→21:06)
[2017-11-20] MEDS: PSYLLIUM 5.85 GM PACKET PO SCH ×2 (09:35→21:31)
[2017-11-20] MEDS: ROFLUMILAST 500 MCG TABLET PO SCH (09:35)
[2017-11-20] MEDS: FLUTICASONE PROP 0.05% 16 GM NASAL SPRAY NS SCH (09:35)
[2017-11-20] MEDS: POLYETHYLENE GLYCOL 3350 119 GM BTL PO SCH (09:36)
[2017-11-20] MEDS: LYTES/YERBA SANTA 240 ML BOTTLE MM SCH (09:36)
--- NOTE | 2017-11-20 11:05 | PN ---
Progress Note (short form) - Note Progress Note: Ambulating in the hallway with an O2 tank. Breathing feels slightly better today. Still with some congested cough. Intake & Output 11/17/17 11/18/17 11/19/17 11/20/17 23:59 23:59 23:59 23:59 Intake Total 370 260 Balance 370 260 Weight 280 lb Last Vital Signs Temp Pulse Resp BP Pulse Ox 97.6 F 55 L 20 136/68 96 11/20/17 04:00 11/20/17 04:00 11/20/17 04:00 11/20/17 04:00 11/19/17 22:56 Active Medications Albuterol/Ipratropium (Duoneb -) 1 amp NEB Q4H PRN PRN Reason: SHORTNESS OF BREATH Last Admin: 11/19/17 05:41 Dose: 1 amp Albuterol/Ipratropium (Duoneb -) 1 amp NEB TID [facility] Amlodipine Besylate (Norvasc -) 5 mg PO DAILY [facility] Last Admin: 11/20/17 09:33 Dose: 5 mg Atorvastatin Calcium (Lipitor -) 20 mg PO [facility] Last Admin: 11/19/17 21:01 Dose: 20 mg Bisacodyl (Dulcolax Suppository -) 10 mg RC Q24H PRN PRN Reason: CONSTIPATION Bupropion HCl (Wellbutrin Xl -) 150 mg PO DAILY [facility] Last Admin: 11/20/17 09:35 Dose: 150 mg Calcium Carbonate/Cholecalciferol (Os-Kenny 500+D -) 1 tab PO BID [facility] Last Admin: 11/20/17 09:34 Dose: 1 tab Docusate Sodium (Colace -) 100 mg PO DAILY [facility] Last Admin: 11/20/17 09:34 Dose: 100 mg Fluticasone Propionate (Flonase -) 2 spray NS DAILY [facility] Last Admin: 11/20/17 09:35 Dose: 2 spray Furosemide (Lasix Injection -) 40 mg IVPUSH DAILY [facility] Last Admin: 11/20/17 09:34 Dose: 40 mg Guaifenesin (Mucinex -) 600 mg PO BID [facility] Last Admin: 11/20/17 09:34 Dose: 600 mg Heparin Sodium (Porcine) (Heparin -) 5,000 unit SQ TID [facility] Last Admin: 11/20/17 06:03 Dose: Not Given Insulin Aspart (Novolog Vial Sliding Scale -) 1 vial SQ ACHS [facility]; Protocol Last Admin: 11/20/17 06:30 Dose: 4 units Insulin Detemir (Levemir Vial) 22 units SQ HS [facility] Last Admin: 11/19/17 21:10 Dose: 22 units Lactobacillus Acidophilus (Bacid -) 1 tab PO BID [facility] Last Admin: 11/20/17 09:33 Dose: 1 tab Lisinopril (Prinivil) 40 mg PO DAILY [facility] Last Admin: 11/20/17 09:33 Dose: 40 mg Loratadine (Claritin -) 10 mg PO DAILY [facility] Last Admin: 11/20/17 09:33 Dose: 10 mg Magnesium Hydroxide (Milk Of Magnesia -) 30 ml PO BID [facility] Last Admin: 11/20/17 09:34 Dose: 30 ml Methylprednisolone Sodium Succinate (Solu-Medrol -) 40 mg IVPUSH BID [facility] Last Admin: 11/20/17 09:34 Dose: 40 mg Polyethylene Glycol (Miralax (For Daily Use) -) 17 gm PO DAILY [facility] Last Admin: 11/20/17 09:36 Dose: 17 gm Potassium Chloride (K-Dur -) 20 meq PO DAILY [facility] Last Admin: 11/20/17 09:34 Dose: 20 meq Psyllium Hydrophilic Mucilloid (Metamucil (Sugar-Free) -) 5.85 gm PO BID [facility] Last Admin: 11/20/17 09:35 Dose: 5.85 gm Ranitidine HCl (Zantac -) 150 mg PO BID [facility] Last Admin: 11/20/17 09:34 Dose: 150 mg Roflumilast (Daliresp -) 500 mcg PO DAILY [facility] Last Admin: 11/20/17 09:35 Dose: 500 mcg Saliva Substitute (Mouthkote Solution -) 1 applic MM DAILY [facility] Last Admin: 11/20/17 09:36 Dose: 1 applic Senna (Senna -) 2 tab PO HS PRN PRN Reason: CONSTIPATION Simethicone (Mylicon -) 160 mg PO Q8H PRN PRN Reason: GAS Constitutional: Yes: Mildly tachypneic at rest Eyes: Yes: EOM Intact HENT: Yes: Normocephalic Neck: Yes: Trachea Midline Cardiovascular: Yes: Regular Rate and Rhythm Respiratory: Yes: Bilateral scattered rhonchi & expiratory Wheezes Gastrointestinal: Yes: Soft, Abdomen, Obese Edema: LLE: 2+, RLE: 2+ Integumentary: Yes: WNL Neurological: Yes: WNL Psychiatric: Yes: WNL Labs: Laboratory Results - last 24 hr 11/19/17 11/19/17 11/19/17 12:33 17:29 21:03 POC Glucometer 258 166 311 11/20/17 06:02 POC Glucometer 212 Problem List - Problems (1) COPD exacerbation Code(s): J44.1 - CHRONIC OBSTRUCTIVE PULMONARY DISEASE W (ACUTE) EXACERBATION (2) Acute on chronic respiratory failure with hypoxia and hypercapnia Code(s): J96.21 - ACUTE AND CHRONIC RESPIRATORY FAILURE WITH HYPOXIA; J96.22 - ACUTE AND CHRONIC RESPIRATORY FAILURE WITH HYPERCAPNIA (3) CHF (congestive heart failure) Code(s): I50.9 - HEART FAILURE, UNSPECIFIED (4) Diabetes Code(s): E11.9 - TYPE 2 DIABETES MELLITUS WITHOUT COMPLICATIONS (5) Hypertension Code(s): I10 - ESSENTIAL (PRIMARY) HYPERTENSION (6) Sleep apnea Code(s): G47.30 - SLEEP APNEA, UNSPECIFIED Assessment/Plan O2 @ 3 L NC NIPPV AT NIGHT( PT HAS HER OWN) BRONCHODILATORS IV STEROIDS KEEP EUVOLEMIC/NEG BALANCE DAILY WEIGHTS GLYCEMIC CONTROL DVT PROPH CAN TRIAL PO STEROIDS IN AM IF STABLE/BETTER DR GAMBINO
[2017-11-20] MEDS: SIMETHICONE 80 MG TAB.CHEW (FP) PO PRN ×2 (11:51→21:12)
[2017-11-20] MEDS ORDERED: INSULIN (NOVOLOG) ASPART 100 UNITS/ML 10ML VIAL ONE (11:55)
--- NOTE | 2017-11-20 12:59 | PN ---
Teaching Attending Note Name of Resident: Jose Real ATTENDING PHYSICIAN STATEMENT I saw and evaluated the patient. I reviewed the resident's note and discussed the case with the resident. I agree with the resident's findings and plan as documented with exceptions below. SUBJECTIVE: Patient seen and examined. breathing continues to improve, no dizziness. Leg Swelling unchanged. OBJECTIVE: Vital Signs Period Temp Pulse Resp BP Sys/Joya Pulse Ox Last 24 Hr 97.6 F-98.7 F 55-82 20-22 136-150/59-82 96-96 Intake & Output 11/17/17 11/18/17 11/19/17 11/20/17 23:59 23:59 23:59 23:59 Intake Total 370 260 Balance 370 260 Weight 280 lb General: sitting in bed in no acute distress Chest: improved air entry, still with ongoing scattered expiratory wheezing Extremities: LE compression stockings present Abdomen:soft, obese, NT Laboratory Results - last 24 hr 11/19/17 11/19/17 11/20/17 17:29 21:03 06:02 POC Glucometer 166 311 212 11/20/17 11:53 POC Glucometer 243 ASSESSMENT AND PLAN: 67yo F wtih PMH COPD on home o2 2L NC, NEIL, CHF, DM, chronic venous stasis, recent R lung nodule sent from [facility] with progressively worsening SOB and productive cough of white sputum, recently admitted with COPD exacerbation/ Diastolic HF comes with similar complaints while tapered on prednisone to 20 mg. -Acute on chronic hypoxic/hypercapneic respiratory failure -Acute COPD exacerbation -Chronic diastolic heart failure -Oxygen/steroid dependent COPD -IDDM -Chronic venous stasis -Right lung nodule Plan: Improved. taper solumedrol to 40 mg IV BID Standing and prn nebs, Pulmonary input noted BIpap hs 16/. Lasix 40 mg IV daily for now. Home levemir, ISS and diabetic diet. No clinical evidence of infection, hold off antibiotics and monitor for now. Compression stockings, recent courses of antibiotics, seen by Dr. Camilo on recent visit, Hold off additional antibiotics. DVTPPx with heparin Dispo back to [facility] once clinically improved. Plan discussed with patient in detail, all questions answered.
[2017-11-20] MEDS: INSULIN (LEVEMIR) 100 UNITS/ML UNITS SQ SCH (21:06)
[2017-11-20] MEDS: ATORVASTATIN CA 20 MG TABLET (FP) PO SCH (21:06)
[2017-11-20] MEDS ORDERED: PANTOPRAZOLE 40 MG TABLET (FP) PO ONE (22:24)
[2017-11-21] MEDS: INSULIN SLIDING SCALE (NOVOLOG) 1 VIAL SQ SCH ×4 (06:43→22:04)
[2017-11-21] MEDS: HEPARIN NA (PORCINE) 5,000 UNITS/ML 1ML VIAL SQ SCH ×3 (06:43→22:00)
[2017-11-21] MEDS: ALBUTEROL SO4 2.5/IPRATROPIUM 0.5 INH SOL 3 ML VIAL.NEB. NEB SCH ×3 (06:57→22:09)
[2017-11-21] MEDS ORDERED: PT OWN MED DRAWER 7, Y5N ONE (10:36)
[2017-11-21] MEDS: CALCIUM 500MG/VIT-D 200 UNITS COMBO TABLET (FP) PO SCH ×2 (10:38→22:00)
[2017-11-21] MEDS: DOCUSATE SODIUM 100 MG CAPSULE (FP) PO SCH (10:38)
[2017-11-21] MEDS: guaiFENesin 600 MG TABLET.ER (FP) PO SCH ×2 (10:38→22:00)
[2017-11-21] MEDS: RANITIDINE HCL 150 MG TABLET (FP) PO SCH ×2 (10:38→22:00)
[2017-11-21] MEDS: LORATADINE 10 MG TABLET PO SCH (10:38)
[2017-11-21] MEDS: POTASSIUM CHLORIDE TABS 10 MEQ TABLET.ER (FP) PO SCH (10:38)
[2017-11-21] MEDS: amLODIPine BESYLATE 5 MG TABLET (FP) PO SCH (10:38)
[2017-11-21] MEDS: LACTOBACILLUS ACIDOPHILUS 1 TABLET PO SCH ×2 (10:38→22:00)
[2017-11-21] MEDS: LISINOPRIL 20 MG TABLET (FP) PO SCH (10:38)
[2017-11-21] MEDS: methylPREDNISolone NA SUCC 40 MG/1 ML VIAL IVPUSH SCH (10:39)
[2017-11-21] MEDS: FUROSEMIDE 40 MG/4 ML INJECTABLE VIAL IVPUSH SCH (10:39)
[2017-11-21] MEDS: ROFLUMILAST 500 MCG TABLET PO SCH (10:39)
[2017-11-21] MEDS: MAGNESIUM HYDROX 2400MG/30ML ORAL SUSPENSION 30 ML CUP PO SCH ×2 (10:39→22:07)
[2017-11-21] MEDS: FLUTICASONE PROP 0.05% 16 GM NASAL SPRAY NS SCH (10:39)
[2017-11-21] MEDS: PSYLLIUM 5.85 GM PACKET PO SCH ×2 (10:39→22:02)
[2017-11-21] MEDS: LYTES/YERBA SANTA 240 ML BOTTLE MM SCH (10:40)
--- NOTE | 2017-11-21 10:50 | PN ---
Progress Note (short form) - Note Progress Note: Breathing feels slightly better today. Still with congested cough. Intake & Output 11/18/17 11/19/17 11/20/17 11/21/17 23:59 23:59 23:59 23:59 Intake Total 370 260 420 Balance 370 260 420 Weight 280 lb Last Vital Signs Temp Pulse Resp BP Pulse Ox 98.0 F 66 20 146/66 96 11/21/17 06:00 11/21/17 06:00 11/21/17 06:00 11/21/17 06:00 11/20/17 22:00 Active Medications Albuterol/Ipratropium (Duoneb -) 1 amp NEB Q4H PRN PRN Reason: SHORTNESS OF BREATH Last Admin: 11/19/17 05:41 Dose: 1 amp Albuterol/Ipratropium (Duoneb -) 1 amp NEB TID [facility] Last Admin: 11/21/17 06:57 Dose: 1 amp Amlodipine Besylate (Norvasc -) 5 mg PO DAILY [facility] Last Admin: 11/21/17 10:38 Dose: 5 mg Atorvastatin Calcium (Lipitor -) 20 mg PO HS [facility] Last Admin: 11/20/17 21:06 Dose: 20 mg Bisacodyl (Dulcolax Suppository -) 10 mg RC Q24H PRN PRN Reason: CONSTIPATION Bupropion HCl (Wellbutrin Xl -) 150 mg PO DAILY [facility] Last Admin: 11/21/17 10:38 Dose: 150 mg Calcium Carbonate/Cholecalciferol (Os-Kenny 500+D -) 1 tab PO BID [facility] Last Admin: 11/21/17 10:38 Dose: 1 tab Docusate Sodium (Colace -) 100 mg PO DAILY [facility] Last Admin: 11/21/17 10:38 Dose: 100 mg Fluticasone Propionate (Flonase -) 2 spray NS DAILY [facility] Last Admin: 11/21/17 10:39 Dose: 2 spray Furosemide (Lasix Injection -) 40 mg IVPUSH DAILY [facility] Last Admin: 11/21/17 10:39 Dose: 40 mg Guaifenesin (Mucinex -) 600 mg PO BID [facility] Last Admin: 11/21/17 10:38 Dose: 600 mg Heparin Sodium (Porcine) (Heparin -) 5,000 unit SQ TID [facility] Last Admin: 11/21/17 06:43 Dose: Not Given Insulin Aspart (Novolog Vial Sliding Scale -) 1 vial SQ ACHS [facility]; Protocol Last Admin: 11/21/17 06:43 Dose: 2 units Insulin Detemir (Levemir Vial) 22 units SQ HS [facility] Last Admin: 11/20/17 21:06 Dose: 22 units Lactobacillus Acidophilus (Bacid -) 1 tab PO BID [facility] Last Admin: 11/21/17 10:38 Dose: 1 tab Lisinopril (Prinivil) 40 mg PO DAILY [facility] Last Admin: 11/21/17 10:38 Dose: 40 mg Loratadine (Claritin -) 10 mg PO DAILY [facility] Last Admin: 11/21/17 10:38 Dose: 10 mg Magnesium Hydroxide (Milk Of Magnesia -) 30 ml PO BID [facility] Last Admin: 11/21/17 10:39 Dose: 30 ml Methylprednisolone Sodium Succinate (Solu-Medrol -) 40 mg IVPUSH BID [facility] Last Admin: 11/21/17 10:39 Dose: 40 mg Polyethylene Glycol (Miralax (For Daily Use) -) 17 gm PO DAILY [facility] Last Admin: 11/20/17 09:36 Dose: 17 gm Potassium Chloride (K-Dur -) 20 meq PO DAILY [facility] Last Admin: 11/21/17 10:38 Dose: 20 meq Psyllium Hydrophilic Mucilloid (Metamucil (Sugar-Free) -) 5.85 gm PO BID [facility] Last Admin: 11/21/17 10:39 Dose: 5.85 gm Ranitidine HCl (Zantac -) 150 mg PO BID [facility] Last Admin: 11/21/17 10:38 Dose: 150 mg Roflumilast (Daliresp -) 500 mcg PO DAILY [facility] Last Admin: 11/21/17 10:39 Dose: 500 mcg Saliva Substitute (Mouthkote Solution -) 1 applic MM DAILY [facility] Last Admin: 11/21/17 10:40 Dose: 1 applic Senna (Senna -) 2 tab PO HS PRN PRN Reason: CONSTIPATION Simethicone (Mylicon -) 160 mg PO Q8H PRN PRN Reason: GAS Last Admin: 11/20/17 21:12 Dose: 160 mg Constitutional: Yes: Mildly tachypneic at rest Eyes: Yes: EOM Intact HENT: Yes: Normocephalic Neck: Yes: Trachea Midline Cardiovascular: Yes: Regular Rate and Rhythm Respiratory: Yes: Bilateral scattered rhonchi & expiratory Wheezes Gastrointestinal: Yes: Soft, Abdomen, Obese Edema: LLE: 2+, RLE: 2+ Integumentary: Yes: WNL Neurological: Yes: WNL Psychiatric: Yes: WNL Labs: Laboratory Results - last 24 hr 11/20/17 11/20/17 11/20/17 11:53 17:17 20:59 POC Glucometer 243 153 218 11/21/17 06:42 POC Glucometer 185 Problem List - Problems (1) COPD exacerbation Code(s): J44.1 - CHRONIC OBSTRUCTIVE PULMONARY DISEASE W (ACUTE) EXACERBATION (2) Acute on chronic respiratory failure with hypoxia and hypercapnia Code(s): J96.21 - ACUTE AND CHRONIC RESPIRATORY FAILURE WITH HYPOXIA; J96.22 - ACUTE AND CHRONIC RESPIRATORY FAILURE WITH HYPERCAPNIA (3) CHF (congestive heart failure) Code(s): I50.9 - HEART FAILURE, UNSPECIFIED (4) Diabetes Code(s): E11.9 - TYPE 2 DIABETES MELLITUS WITHOUT COMPLICATIONS (5) Hypertension Code(s): I10 - ESSENTIAL (PRIMARY) HYPERTENSION (6) Sleep apnea Code(s): G47.30 - SLEEP APNEA, UNSPECIFIED Assessment/Plan O2 @ 3 L NC NIPPV AT NIGHT( PT HAS HER OWN) BRONCHODILATORS IV STEROIDS AT THE SAME DOSE: CAN POTENTIALLY CHANGE TO PO IN AM KEEP EUVOLEMIC/NEG BALANCE DAILY WEIGHTS GLYCEMIC CONTROL DVT PROPH DR GAMBINO
[2017-11-21] MEDS: POLYETHYLENE GLYCOL 3350 119 GM BTL PO SCH (10:54)
[2017-11-21] MEDS: SIMETHICONE 80 MG TAB.CHEW (FP) PO PRN ×2 (11:01→22:10)
[2017-11-21] MEDS: ALBUTEROL SO4 2.5/IPRATROPIUM 0.5 INH SOL 3 ML VIAL.NEB. NEB PRN (11:33)
--- NOTE | 2017-11-21 12:06 | PN ---
Physical Exam: SUBJECTIVE: Patient seen and examined, breathing continues to improve. Had questions about her inhouse insulin regimen, but no concerns otherwise. OBJECTIVE: Vital Signs Period Temp Pulse Resp BP Sys/Joya Pulse Ox Last 24 Hr 97.9 F-98.6 F 57-66 18-20 143-154/66-74 96 GENERAL: sitting in bed in no acute distress Chest: improved air entry, markedly improved expiratory wheezing today Abdomen:Soft, obese, NT Extremities; bilateral LE compression stockings. Laboratory Results - last 24 hr 11/20/17 11/20/17 11/20/17 11:53 17:17 20:59 POC Glucometer 243 153 218 11/21/17 06:42 POC Glucometer 185 Home Medications Medication Instructions Recorded Albuterol Sulfate [Proair Hfa] 2 inh IN QID PRN 10/17/17 Amlodipine Besylate [Norvasc -] 1 tab PO DAILY 10/17/17 Aspirin [ASA -] 81 mg PO DAILY 10/17/17 Calcium Carbonate/Vitamin D3 2 each PO DAILY 10/17/17 [Calcium 600-Vit D3 400 Tablet] Furosemide [Lasix] 60 mg PO DAILY 10/17/17 Guaifenesin/Pseudoephedrne HCl 1 each PO BID 10/17/17 [Mucinex D ER 600-60 mg Tablet] Insulin Aspart [Novolog Flexpen] 6 unit SQ TID 10/17/17 Insulin Glargine,Hum.rec.anlog 22 units SQ HS 10/17/17 [Lantus Solostar] Insulin NPH Hum/Reg Insulin Hm 1 unit SQ PRN PRN 10/17/17 [Novolin 70-30 100 Unit/ml Vial] Krill/Om-3/Dha/Epa/Phospho/Ast 1 each PO DAILY 10/17/17 [[place]-3 Krill Oil 300 mg Sfgl] Lisinopril [Prinivil -] 40 mg PO DAILY 10/17/17 Loratadine 10 mg PO DAILY 10/17/17 Magnesium Hydroxide [Milk of 30 ml PO BID PRN 10/17/17 Magnesia] Polyethylene Glycol 3350 [Miralax 1 packet PO BID 10/17/17 119 gm Btl -] Potassium Chloride [K-Dur -] 1 tablet PO BID 10/17/17 Psyllium Husk (with Sugar) 3.4 gm PO BID 10/17/17 [Metamucil Packet] Ranitidine [Zantac -] 1 tab PO BID 10/17/17 Refresh P.M 1 applic OS BID 10/17/17 Roflumilast [Daliresp] 500 mcg PO DAILY 10/17/17 Saliva Stimulant Comb. No.2 1 cap PO BID 10/17/17 [Biotene Oralbalance] Sennosides [Senna] 2 tab PO HS PRN 10/17/17 Simethicone 180 mg PO TID 10/17/17 Simvastatin 20 mg PO HS 10/17/17 Acetylcysteine [Nac] 600 mg PO BID 11/18/17 Albuterol Sulfate [Proventil HFA 1 puff IH Q8H 11/18/17 Inhaler -] Bisacodyl Suppository [Dulcolax 1 supp IN DAILY PRN 11/18/17 Suppository -] Budesonide/Formeterol Fumarate 1 puff IH DAILY 11/18/17 [SYMBICORT 160/4.5mcg -] Bupropion HCl [Bupropion HCl ER] 150 mg PO BID 11/18/17 Calcium Carbonate/Vitamin D3 1 tab PO BID 11/18/17 [Calcium 600 + Vit D 400 Softgl] Cephalexin [Keflex] 500 mg PO BID 11/18/17 Docusate Sodium [Colace -] 300 mg PO HS 11/18/17 Facial Mask [Nexcare All Purpose 1 adh.patch .ROUTE DAILY 11/18/17 Mask] Fluticasone Propionate [Flovent 50 mcg IH DAILY 11/18/17 Diskus] Furosemide 80 mg PO BID 11/18/17 Lactobacillus Acidophilus [Bacid -] 1 tab PO BID 11/18/17 Prednisone 5 mg PO DAILY 11/18/17 Sodium Phosphate,[place]-Dibasic 133 ml IN DAILY PRN 11/18/17 [Fleet Enema] predniSONE [Deltasone -] 20 mg PO DAILY 11/18/17 Guaifenesin/Dextromethorphan 600 mg PO BID 11/19/17 [Mucinex Dm ER 1,200-60 mg Tab] Active Medications Generic Name Dose Route Start Last Admin Trade Name Freq PRN Reason Stop Dose Admin Albuterol/Ipratropium 1 amp 11/18/17 17:14 11/21/17 11:33 Duoneb - NEB 1 amp Q4H PRN Administration SHORTNESS OF BREATH Albuterol/Ipratropium 1 amp 11/20/17 14:00 11/21/17 06:57 Duoneb - NEB 1 amp TID [facility] Administration Amlodipine Besylate 5 mg 11/19/17 10:00 11/21/17 10:38 Norvasc - PO 5 mg DAILY [facility] Administration Atorvastatin Calcium 20 mg 11/18/17 22:00 11/20/17 21:06 Lipitor - PO 20 mg HS [facility] Administration Bisacodyl 10 mg 11/18/17 18:17 Dulcolax Suppository - RC Q24H PRN CONSTIPATION Bupropion HCl 150 mg 11/19/17 10:00 11/21/17 10:38 Wellbutrin Xl - PO 150 mg DAILY [facility] Administration Calcium Carbonate/Cholecalciferol 1 tab 11/18/17 22:00 11/21/17 10:38 Os-Kenny 500+D - PO 1 tab BID [facility] Administration Docusate Sodium 100 mg 11/19/17 10:00 11/21/17 10:38 Colace - PO 100 mg DAILY [facility] Administration Fluticasone Propionate 2 spray 11/19/17 10:00 11/21/17 10:39 Flonase - NS 2 spray DAILY [facility] Administration Furosemide 40 mg 11/18/17 18:30 11/21/17 10:39 Lasix Injection - IVPUSH 40 mg DAILY [facility] Administration Guaifenesin 600 mg 11/18/17 22:00 11/21/17 10:38 Mucinex - PO 600 mg BID [facility] Administration Heparin Sodium (Porcine) 5,000 unit 11/18/17 22:00 11/21/17 06:43 Heparin - SQ Not Given TID [facility] Insulin Aspart 1 vial 11/19/17 16:30 11/21/17 06:43 Novolog Vial Sliding Scale - SQ 2 units ACHS [facility] Administration Protocol Insulin Detemir 22 units 11/18/17 22:00 11/20/17 21:06 Levemir Vial SQ 22 units HS [facility] Administration Lactobacillus Acidophilus 1 tab 11/18/17 22:00 11/21/17 10:38 Bacid - PO 1 tab BID [facility] Administration Lisinopril 40 mg 11/19/17 10:00 11/21/17 10:38 Prinivil PO 40 mg DAILY [facility] Administration Loratadine 10 mg 11/19/17 10:00 11/21/17 10:38 Claritin - PO 10 mg DAILY [facility] Administration Magnesium Hydroxide 30 ml 11/18/17 22:00 11/21/17 10:39 Milk Of Magnesia - PO 30 ml BID [facility] Administration Polyethylene Glycol 17 gm 11/19/17 10:00 11/21/17 10:54 Miralax (For Daily Use) - PO 17 gm DAILY [facility] Administration Potassium Chloride 20 meq 11/19/17 10:00 11/21/17 10:38 K-Dur - PO 20 meq DAILY [facility] Administration Prednisone 60 mg 11/21/17 12:15 Deltasone - PO DAILY [facility] Psyllium Hydrophilic Mucilloid 5.85 gm 11/18/17 22:00 11/21/17 10:39 Metamucil (Sugar-Free) - PO 5.85 gm BID [facility] Administration Ranitidine HCl 150 mg 11/18/17 22:00 11/21/17 10:38 Zantac - PO 150 mg BID [facility] Administration Roflumilast 500 mcg 11/19/17 10:00 11/21/17 10:39 Daliresp - PO 500 mcg DAILY [facility] Administration Saliva Substitute 1 applic 11/19/17 14:45 11/21/17 10:40 Mouthkote Solution - MM 1 applic DAILY [facility] Administration Senna 2 tab 11/18/17 18:16 Senna - PO HS PRN CONSTIPATION Simethicone 160 mg 11/18/17 18:05 11/21/17 11:01 Mylicon - PO 160 mg Q8H PRN Administration GAS ASSESSMENT/PLAN: 67yo F wtih PMH COPD on home o2 2L NC, NEIL, CHF, DM, chronic venous stasis, [place] [facility] [place] and productive cough of white sputum, recently admitted with COPD exacerbation/ Diastolic HF comes with similar complaints while tapered on prednisone to 20 mg. -Acute on chronic hypoxic/hypercapneic respiratory failure -Acute COPD exacerbation -Chronic diastolic heart failure -Oxygen/steroid dependent COPD -IDDM -Chronic venous stasis -Right lung nodule Plan: Improved. taper to PO prednisone 60 mg daily, will need a slow taper and ? higher baseline dosing on d/c Standing and prn nebs, Pulmonary input noted BIpap hs 30/12. Lasix 40 mg IV daily for now. Home levemir, ISS and diabetic diet. Resume premeal novolog 6 units TIDAC and liberalize ISS to start > 250. No clinical evidence of infection, hold off antibiotics and monitor for now. Compression stockings, recent courses of antibiotics, seen by Dr. Camilo on recent visit, Hold off additional antibiotics. DVTPPx with heparin Dispo back to [facility] in 24 hours if continues to improve. Plan discussed with patient in detail, all questions answered. Plan discussed with Nursing. Visit type - Emergency Visit Emergency Visit: Yes ED Registration Date: 11/18/17 Care time: The patient presented to the Emergency Department on the above date and was hospitalized for further evaluation of their emergent condition. - New Patient This patient is new to me today: No - Critical Care Critical Care patient: No - Discharge Referral Referred to [facility] Med P.C.: No
[2017-11-21] MEDS: predniSONE 20 MG TABLET (UD) PO SCH (15:21)
[2017-11-21] MEDS: INSULIN (NOVOLOG) ASPART 100 UNITS/ML 10ML VIAL SQ SCH (18:13)
[2017-11-21] MEDS: INSULIN (LEVEMIR) 100 UNITS/ML UNITS SQ SCH (22:01)
[2017-11-21] MEDS: ATORVASTATIN CA 20 MG TABLET (FP) PO SCH (22:01)
[2017-11-22] MEDS: HEPARIN NA (PORCINE) 5,000 UNITS/ML 1ML VIAL SQ SCH ×2 (06:19→14:09)
[2017-11-22] MEDS: INSULIN (NOVOLOG) ASPART 100 UNITS/ML 10ML VIAL SQ SCH ×2 (06:21→12:46)
[2017-11-22] MEDS: INSULIN SLIDING SCALE (NOVOLOG) 1 VIAL SQ SCH ×2 (06:22→12:20)
[2017-11-22] MEDS: ALBUTEROL SO4 2.5/IPRATROPIUM 0.5 INH SOL 3 ML VIAL.NEB. NEB SCH ×3 (07:00→13:30)
[2017-11-22] MEDS ORDERED: PT OWN MED DRAWER 7, Y5N ONE (09:20)
[2017-11-22] MEDS: MAGNESIUM HYDROX 2400MG/30ML ORAL SUSPENSION 30 ML CUP PO SCH ×2 (09:31→09:40)
[2017-11-22] MEDS: predniSONE 20 MG TABLET (UD) PO SCH (09:31)
[2017-11-22] MEDS: LISINOPRIL 20 MG TABLET (FP) PO SCH (09:32)
[2017-11-22] MEDS: LACTOBACILLUS ACIDOPHILUS 1 TABLET PO SCH (09:32)
[2017-11-22] MEDS: CALCIUM 500MG/VIT-D 200 UNITS COMBO TABLET (FP) PO SCH (09:32)
[2017-11-22] MEDS: FUROSEMIDE 40 MG/4 ML INJECTABLE VIAL IVPUSH SCH ×2 (09:32→11:11)
[2017-11-22] MEDS: DOCUSATE SODIUM 100 MG CAPSULE (FP) PO SCH (09:32)
[2017-11-22] MEDS: amLODIPine BESYLATE 5 MG TABLET (FP) PO SCH (09:32)
[2017-11-22] MEDS: LORATADINE 10 MG TABLET PO SCH (09:32)
[2017-11-22] MEDS: POTASSIUM CHLORIDE TABS 10 MEQ TABLET.ER (FP) PO SCH (09:32)
[2017-11-22] MEDS: guaiFENesin 600 MG TABLET.ER (FP) PO SCH (09:32)
[2017-11-22] MEDS: RANITIDINE HCL 150 MG TABLET (FP) PO SCH (09:33)
[2017-11-22 09:47] VITALS: BP 142/64; PULSE 63; TEMP 98
[2017-11-22] MEDS: SIMETHICONE 80 MG TAB.CHEW (FP) PO PRN (09:52)
[2017-11-22] MEDS: ROFLUMILAST 500 MCG TABLET PO SCH (09:52)
[2017-11-22] MEDS: PSYLLIUM 5.85 GM PACKET PO SCH (09:53)
[2017-11-22] MEDS: POLYETHYLENE GLYCOL 3350 119 GM BTL PO SCH (09:53)
[2017-11-22] MEDS: FLUTICASONE PROP 0.05% 16 GM NASAL SPRAY NS SCH (09:58)
[2017-11-22] MEDS: LYTES/YERBA SANTA 240 ML BOTTLE MM SCH (09:59)
[2017-11-22] MEDS ORDERED: FUROSEMIDE 40 MG TABLET (FP) PO SCH (11:15)
--- NOTE | 2017-11-22 11:33 | PN ---
Progress Note (short form) - Note Progress Note: Breathing feels slightly better today. Still with congested cough, but sightly better as well. Took Prednisone this AM. Intake & Output 11/19/17 11/20/17 11/21/17 11/22/17 23:59 23:59 23:59 23:59 Intake Total 260 420 620 200 Balance 260 420 620 200 Weight 212 lb 7 oz Last Vital Signs Temp Pulse Resp BP Pulse Ox 98.0 F 63 20 142/64 96 11/22/17 09:47 11/22/17 09:47 11/22/17 06:00 11/22/17 09:47 11/21/17 21:00 Active Medications Albuterol/Ipratropium (Duoneb -) 1 amp NEB Q4H PRN PRN Reason: SHORTNESS OF BREATH Last Admin: 11/21/17 11:33 Dose: 1 amp Albuterol/Ipratropium (Duoneb -) 1 amp NEB RTID [facility] Amlodipine Besylate (Norvasc -) 5 mg PO DAILY [facility] Last Admin: 11/22/17 09:32 Dose: 5 mg Atorvastatin Calcium (Lipitor -) 20 mg PO HS [facility] Last Admin: 11/21/17 22:01 Dose: 20 mg Bisacodyl (Dulcolax Suppository -) 10 mg RC Q24H PRN PRN Reason: CONSTIPATION Bupropion HCl (Wellbutrin Xl -) 150 mg PO DAILY [facility] Last Admin: 11/22/17 09:52 Dose: 150 mg Calcium Carbonate/Cholecalciferol (Os-Kenny 500+D -) 1 tab PO BID [facility] Last Admin: 11/22/17 09:32 Dose: 1 tab Docusate Sodium (Colace -) 100 mg PO DAILY [facility] Last Admin: 11/22/17 09:32 Dose: 100 mg Fluticasone Propionate (Flonase -) 2 spray NS DAILY [facility] Last Admin: 11/22/17 09:58 Dose: 2 spray Furosemide (Lasix -) 80 mg PO BID [facility] Last Admin: 11/22/17 11:24 Dose: 80 mg Guaifenesin (Mucinex -) 600 mg PO BID [facility] Last Admin: 11/22/17 09:32 Dose: 600 mg Heparin Sodium (Porcine) (Heparin -) 5,000 unit SQ TID [facility] Last Admin: 11/22/17 06:19 Dose: Not Given Insulin Aspart (Novolog Vial) 6 units SQ TIDAC [facility]; Protocol Last Admin: 11/22/17 06:21 Dose: 6 units Insulin Aspart (Novolog Vial Sliding Scale -) 1 vial SQ ACHS [facility]; Protocol Last Admin: 11/22/17 06:22 Dose: Not Given Insulin Detemir (Levemir Vial) 22 units SQ HS [facility] Last Admin: 11/21/17 22:01 Dose: 22 units Lactobacillus Acidophilus (Bacid -) 1 tab PO BID [facility] Last Admin: 11/22/17 09:32 Dose: 1 tab Lisinopril (Prinivil) 40 mg PO DAILY [facility] Last Admin: 11/22/17 09:32 Dose: 40 mg Loratadine (Claritin -) 10 mg PO DAILY [facility] Last Admin: 11/22/17 09:32 Dose: 10 mg Magnesium Hydroxide (Milk Of Magnesia -) 30 ml PO BID [facility] Last Admin: 11/22/17 09:40 Dose: Not Given Polyethylene Glycol (Miralax (For Daily Use) -) 17 gm PO DAILY [facility] Last Admin: 11/22/17 09:53 Dose: 17 gm Potassium Chloride (K-Dur -) 20 meq PO DAILY [facility] Last Admin: 11/22/17 09:32 Dose: 20 meq Prednisone (Deltasone -) 60 mg PO DAILY [facility] Last Admin: 11/22/17 09:31 Dose: 60 mg Psyllium Hydrophilic Mucilloid (Metamucil (Sugar-Free) -) 5.85 gm PO BID [facility] Last Admin: 11/22/17 09:53 Dose: 5.85 gm Ranitidine HCl (Zantac -) 150 mg PO BID [facility] Last Admin: 11/22/17 09:33 Dose: 150 mg Roflumilast (Daliresp -) 500 mcg PO DAILY [facility] Last Admin: 11/22/17 09:52 Dose: 500 mcg Saliva Substitute (Mouthkote Solution -) 1 applic MM DAILY [facility] Last Admin: 11/22/17 09:59 Dose: 1 applic Senna (Senna -) 2 tab PO HS PRN PRN Reason: CONSTIPATION Simethicone (Mylicon -) 160 mg PO Q8H PRN PRN Reason: GAS Last Admin: 11/22/17 09:52 Dose: 160 mg Constitutional: Yes: Mildly tachypneic at rest Eyes: Yes: EOM Intact HENT: Yes: Normocephalic Neck: Yes: Trachea Midline Cardiovascular: Yes: Regular Rate and Rhythm Respiratory: Yes: Bilateral scattered rhonchi & expiratory Wheezes Gastrointestinal: Yes: Soft, Abdomen, Obese Edema: LLE: 2+, RLE: 2+ Integumentary: Yes: WNL Neurological: Yes: WNL Psychiatric: Yes: WNL Labs: Laboratory Results - last 24 hr 11/21/17 11/21/17 11/21/17 12:50 17:31 22:03 POC Glucometer 203 246 183 11/22/17 11/22/17 11/22/17 05:54 07:42 07:55 POC Glucometer 130 38 70 Problem List - Problems (1) COPD exacerbation Code(s): J44.1 - CHRONIC OBSTRUCTIVE PULMONARY DISEASE W (ACUTE) EXACERBATION (2) Acute on chronic respiratory failure with hypoxia and hypercapnia Code(s): J96.21 - ACUTE AND CHRONIC RESPIRATORY FAILURE WITH HYPOXIA; J96.22 - ACUTE AND CHRONIC RESPIRATORY FAILURE WITH HYPERCAPNIA (3) CHF (congestive heart failure) Code(s): I50.9 - HEART FAILURE, UNSPECIFIED (4) Diabetes Code(s): E11.9 - TYPE 2 DIABETES MELLITUS WITHOUT COMPLICATIONS (5) Hypertension Code(s): I10 - ESSENTIAL (PRIMARY) HYPERTENSION (6) Sleep apnea Code(s): G47.30 - SLEEP APNEA, UNSPECIFIED Assessment/Plan PREDNISONE TAPER O2 @ 3 L NC NIPPV AT NIGHT( PT HAS HER OWN) BRONCHODILATORS GLYCEMIC CONTROL DVT PROPH D/C PLANNING: SHOULD BE SENT ON: LAMA / [facility] / [facility] / D[address]IRESP DR GAMBINO
--- NOTE | 2017-11-22 14:05 | DS ---
Physical Exam: SUBJECTIVE: Patient seen and examined this morning while at bedside. Patient used her bipap over night and says her breathing has improved. Denies fevers, chills, chest pain, nausea, vomiting, diarrhea, constipation No over night acute events as per nursing. OBJECTIVE: Vital Signs Period Temp Pulse Resp BP Sys/Joya Pulse Ox Last 24 Hr 97.7 F-98.5 F 54-68 18-20 137-152/64-80 96-98 PHYSICAL EXAM GENERAL: Awake, alert, and fully oriented, in no acute distress. EYES: Left eye lid lag, Disconjugate gaze LUNGS: Breath sounds equal, airway entry improved, no wheezes, no crackles, no rales, on 3L O2 Via nasal canal HEART: Regular rate and rhythm, normal S1 and S2, Systolic ejection murmur across the pericardium, No rubs or gallops. ABDOMEN: Soft, nontender, not distended, normoactive bowel sounds LOWER EXTREMITIES: 2+ peripheral edema. Discoloration, Varicose veins present, 2 + pulses, warm, No calf tenderness. LABS Laboratory Results - last 24 hr 11/21/17 11/21/17 11/22/17 17:31 22:03 05:54 POC Glucometer 246 183 130 11/22/17 11/22/17 11/22/17 07:42 07:55 12:17 POC Glucometer 38 70 105 HOSPITAL COURSE: Date of Admission:11/18/17 Date of Discharge: 11/22/17 Prehospital course 67 y/o female resident of [facility] with a PMHx of IDDM, COPD on 1-3L of O2 at home, OAS on Bipap, CHF, HTN, HLD, Lymphedema, Venous stasis and Lung nodule presents with 2 day hx of SOB. Patient has had difficulty breathing for the few days accompanied by a cough productive of white sputum. Patient has had to increase her home oxygen to >3L multiples over the past few days with minimal relief. She has tried Mucomist, flonase and claritin all with minimal relief. Patient is currently coming off a prednisone taper, and took 20 mg this morning. Denies any recent travels or sick contacts. Hospital course Patient was admitted for SOB and wheezing secondary to COPD Exacerbation. A CXR showed no acute cardiopulmonary pathology. Patient was placed on supplemental O2 at 3L via NC throughout her stay and used her Bipap at night. She was started on IV Solumederol, Antibiotics were not indicated at this time. Patient continued her home dose of lasix and used JANELLE Stockings. Patient then transitioned to PO Prednisone after 3 days of IV Solumederol. Patient was discharged back to a longterm facility after her breathing returned to baseline and she improved clinically. On discharge, patient will begin a Prednisone taper. She will also need follow up with [employer] and her PCP. Minutes to complete discharge: 40 Discharge Summary Reason For Visit: ACUTE EXACERBATION OF COPD Current Active Problems COPD exacerbation (Acute) Condition: Good - Instructions Diet, Activity, Other Instructions: Prednisone taper as follows 60 mg daily for 4 days, 50 mg daily for 4 days 40 mg daily for 4 days 30 mg daily for 4 days, then 20 mg daily further instructed by your lung doctor. Follow up with lung doctor in 1-2 weeks to address standing dose of steroids and further treatment. Resume home lasix, Keep legs elevated and use compressions stockings as directed. Daily weights and notify MD if weight gain > 3 lbs in 2 days. Continue nightly bipap as prior. Blood sugar monitoring before meals and at bedtime. Call 911 or come to ED if any fevers, chills, worsening breathing or new concerns noted. Referrals: Cameron Albert MD [Primary Care Provider] - 1 Week Ankur Roblero MD, [Staff Physician] - 1 Week (Lung Nodule and steroid taper) Disposition: NURSING HOME FACILITY - Home Medications Comprehensive Discharge Medication List: Ambulatory Orders Albuterol Sulfate [Proair Hfa] 2 inh IN QID PRN 10/17/17 Amlodipine Besylate [Norvasc -] 1 tab PO DAILY 10/17/17 Aspirin [ASA -] 81 mg PO DAILY 10/17/17 Calcium Carbonate/Vitamin D3 [Calcium 600-Vit D3 400 Tablet] 2 each PO DAILY 08/01 Guaifenesin/Pseudoephedrne HCl [Mucinex D ER 600-60 mg Tablet] 1 each PO BID 08/01 Insulin Aspart [Novolog Flexpen] 6 unit SQ TID 10/17/17 Insulin Glargine,Hum.rec.anlog [Lantus Solostar] 22 units SQ HS 10/17/17 Insulin NPH Hum/Reg Insulin Hm [Novolin 70-30 100 Unit/ml Vial] 1 unit SQ PRN PRN 10/17/17 Krill/Om-3/Dha/Epa/Phospho/Ast [Nancy-3 Krill Oil 300 mg Sfgl] 1 each PO DAILY 10/17/17 Lisinopril [Prinivil -] 40 mg PO DAILY 10/17/17 Loratadine 10 mg PO DAILY 10/17/17 Magnesium Hydroxide [Milk of Magnesia] 30 ml PO BID PRN 10/17/17 Polyethylene Glycol 3350 [Miralax 119 gm Btl -] 1 packet PO BID 10/17/17 Potassium Chloride [K-Dur -] 1 tablet PO BID 10/17/17 Psyllium Husk (with Sugar) [Metamucil Packet] 3.4 gm PO BID 10/17/17 Ranitidine [Zantac -] 1 tab PO BID 10/17/17 Refresh P.M 1 applic OS BID 10/17/17 Roflumilast [Daliresp] 500 mcg PO DAILY 10/17/17 Saliva Stimulant Comb. No.2 [Biotene Oralbalance] 1 cap PO BID 10/17/17 Sennosides [Senna] 2 tab PO HS PRN 10/17/17 Simethicone 180 mg PO TID 10/17/17 Simvastatin 20 mg PO HS 10/17/17 Acetylcysteine [Nac] 600 mg PO BID 11/18/17 Albuterol Sulfate [Proventil HFA Inhaler -] 1 puff IH Q8H 11/18/17 Bisacodyl Suppository [Dulcolax Suppository -] 1 supp MA DAILY PRN 11/18/17 Budesonide/Formeterol Fumarate [SYMBICORT 160/4.5mcg -] 1 puff IH DAILY Bupropion HCl [Bupropion HCl ER] 150 mg PO BID 11/18/17 Calcium Carbonate/Vitamin D3 [Calcium 600 + Vit D 400 Softgl] 1 tab PO BID 11/18 Docusate Sodium [Colace -] 300 mg PO HS 11/18/17 Facial Mask [Nexcare All Purpose Mask] 1 adh.patch .ROUTE DAILY 11/18/17 Fluticasone Propionate [Flovent Diskus] 50 mcg IH DAILY 11/18/17 Furosemide 80 mg PO BID 11/18/17 Lactobacillus Acidophilus [Bacid -] 1 tab PO BID 11/18/17 Sodium Phosphate,[place]-Dibasic [Fleet Enema] 133 ml MA DAILY PRN 11/18/17 Guaifenesin/Dextromethorphan [Mucinex Dm ER 1,200-60 mg Tab] 600 mg PO BID 11/19 predniSONE [Deltasone -] See Taper PO ASDIR #92 tab 11/22/17 This patient is new to me today: No Emergency Visit: No Critical Care patient: No - Discharge Referral Referred to [facility] No
--- NOTE | 2017-11-22 14:08 | PN ---
Teaching Attending Note Name of Resident: Laverne Lauren ATTENDING PHYSICIAN STATEMENT I saw and evaluated the patient. I reviewed the resident's note and discussed the case with the resident. I agree with the resident's findings and plan as documented with exceptions below. SUBJECTIVE: Patient seen and examined. Breathing improved, lower blood sugar this AM, feels her breakfast came later than how she does at NE. aware of her sugars at the NE and comfortable with current home regimen with monitoring. OBJECTIVE: Vital Signs Period Temp Pulse Resp BP Sys/Joya Pulse Ox Last 24 Hr 97.7 F-98.5 F 54-68 18-20 137-152/64-80 96-98 Intake & Output 11/19/17 11/20/17 11/21/17 11/22/17 23:59 23:59 23:59 23:59 Intake Total 260 420 620 200 Balance 260 420 620 200 Weight 212 lb 7 oz General: sitting in bed in no acute distress Chest: improved air entry, no wheezing today Abdomen:soft, obese, NT Extremities: compression stockings in place Active Medications Albuterol/Ipratropium (Duoneb -) 1 amp NEB Q4H PRN PRN Reason: SHORTNESS OF BREATH Last Admin: 11/21/17 11:33 Dose: 1 amp Albuterol/Ipratropium (Duoneb -) 1 amp NEB RTID [facility] Last Admin: 11/22/17 13:30 Dose: 1 amp Amlodipine Besylate (Norvasc -) 5 mg PO DAILY [facility] Last Admin: 11/22/17 09:32 Dose: 5 mg Atorvastatin Calcium (Lipitor -) 20 mg PO HS [facility] Last Admin: 11/21/17 22:01 Dose: 20 mg Bisacodyl (Dulcolax Suppository -) 10 mg RC Q24H PRN PRN Reason: CONSTIPATION Bupropion HCl (Wellbutrin Xl -) 150 mg PO DAILY [facility] Last Admin: 11/22/17 09:52 Dose: 150 mg Calcium Carbonate/Cholecalciferol (Os-Kenny 500+D -) 1 tab PO BID [facility] Last Admin: 11/22/17 09:32 Dose: 1 tab Docusate Sodium (Colace -) 100 mg PO DAILY [facility] Last Admin: 11/22/17 09:32 Dose: 100 mg Fluticasone Propionate (Flonase -) 2 spray NS DAILY [facility] Last Admin: 11/22/17 09:58 Dose: 2 spray Furosemide (Lasix -) 80 mg PO BID [facility] Last Admin: 11/22/17 11:24 Dose: 80 mg Guaifenesin (Mucinex -) 600 mg PO BID [facility] Last Admin: 11/22/17 09:32 Dose: 600 mg Heparin Sodium (Porcine) (Heparin -) 5,000 unit SQ TID [facility] Last Admin: 11/22/17 06:19 Dose: Not Given Insulin Aspart (Novolog Vial) 6 units SQ TIDAC [facility]; Protocol Last Admin: 11/22/17 12:46 Dose: 6 units Insulin Aspart (Novolog Vial Sliding Scale -) 1 vial SQ ACHS [facility]; Protocol Last Admin: 11/22/17 12:20 Dose: Not Given Insulin Detemir (Levemir Vial) 22 units SQ HS [facility] Last Admin: 11/21/17 22:01 Dose: 22 units Lactobacillus Acidophilus (Bacid -) 1 tab PO BID [facility] Last Admin: 11/22/17 09:32 Dose: 1 tab Lisinopril (Prinivil) 40 mg PO DAILY [facility] Last Admin: 11/22/17 09:32 Dose: 40 mg Loratadine (Claritin -) 10 mg PO DAILY [facility] Last Admin: 11/22/17 09:32 Dose: 10 mg Magnesium Hydroxide (Milk Of Magnesia -) 30 ml PO BID [facility] Last Admin: 11/22/17 09:40 Dose: Not Given Polyethylene Glycol (Miralax (For Daily Use) -) 17 gm PO DAILY [facility] Last Admin: 11/22/17 09:53 Dose: 17 gm Potassium Chloride (K-Dur -) 20 meq PO DAILY [facility] Last Admin: 11/22/17 09:32 Dose: 20 meq Prednisone (Deltasone -) 60 mg PO DAILY [facility] Last Admin: 11/22/17 09:31 Dose: 60 mg Psyllium Hydrophilic Mucilloid (Metamucil (Sugar-Free) -) 5.85 gm PO BID [facility] Last Admin: 11/22/17 09:53 Dose: 5.85 gm Ranitidine HCl (Zantac -) 150 mg PO BID [facility] Last Admin: 11/22/17 09:33 Dose: 150 mg Roflumilast (Daliresp -) 500 mcg PO DAILY [facility] Last Admin: 11/22/17 09:52 Dose: 500 mcg Saliva Substitute (Mouthkote Solution -) 1 applic MM DAILY [facility] Last Admin: 11/22/17 09:59 Dose: 1 applic Senna (Senna -) 2 tab PO HS PRN PRN Reason: CONSTIPATION Simethicone (Mylicon -) 160 mg PO Q8H PRN PRN Reason: GAS Last Admin: 11/22/17 09:52 Dose: 160 mg Laboratory Results - last 24 hr 11/21/17 11/21/17 11/22/17 17:31 22:03 05:54 POC Glucometer 246 183 130 11/22/17 11/22/17 11/22/17 07:42 07:55 12:17 POC Glucometer 38 70 105 ASSESSMENT AND PLAN: 67yo F wtih PMH COPD on home o2 2L NC, NEIL, CHF, DM, chronic venous stasis, recent R lung nodule sent from [facility] with progressively worsening SOB and productive cough of white sputum, recently admitted with COPD exacerbation/ Diastolic HF comes with similar complaints while tapered on prednisone to 20 mg. -Acute on chronic hypoxic/hypercapneic respiratory failure -Acute COPD exacerbation -Chronic diastolic heart failure -Oxygen/steroid dependent COPD -IDDM -Chronic venous stasis -Right lung nodule Plan: Improved, lasix po daily with slow taper till 20 mg, then per pulmonary REsume home lasix at 80 mg BID BIpap 30/12. home levemir, pemeal novolog with titration at NE. patient well aware of sugars and comfortable to manage at the NE. No clinical evidence of infection, hold off antibiotics and monitor for now. Compression stockings, recent courses of antibiotics, seen by Dr. Camilo on recent visit, Hold off additional antibiotics. D/c back to [facility] today with outpatient pulmonary follow up. Plan discussed with patient in detail, all questions answered. Plan discussed with Nursing.
== END 2017-11-22 15:36 | DRG 190 ==
LOC: JER 12:37 → JERBED 15:57 → J8W 17:31
PROVIDERS: ADMIT Hospitalist; ATTEND Hospitalist
DX: J44.1 Chronic obstructive pulmonary disease with (acute) exacerbation (principal); J96.22 Acute and chronic respiratory failure with hypercapnia; I50.32 Chronic diastolic (congestive) heart failure; I11.0 Hypertensive heart disease with heart failure; I45.10 Unspecified right bundle-branch block; G47.33 Obstructive sleep apnea (adult) (pediatric); R91.1 Solitary pulmonary nodule; J96.21 Acute and chronic respiratory failure with hypoxia; E11.9 Type 2 diabetes mellitus without complications; E66.9 Obesity, unspecified; Z68.35 Body mass index [BMI] 35.0-35.9, adult; I87.8 Other specified disorders of veins; K59.09 Other constipation; R00.1 Bradycardia, unspecified; Z87.891 Personal history of nicotine dependence; Z99.81 Dependence on supplemental oxygen; Z79.4 Long term (current) use of insulin; Z79.52 Long term (current) use of systemic steroids; Z78.0 Asymptomatic menopausal state
CPT/HCPCS: 36415; 71045-TC-FY; 80053; 82803; 82962; 83735; 84100; 85025; 85027; 85610; 85730; 93005; 93010; 94640; 99283-25; J1644; J7620

== ENCOUNTER 2023-12-31 05:28 | Emergency (ER) | payer OTHER ==
[2023-12-31 06:00] VITALS: TEMP 98.3; BMI 33.3
[2023-12-31 06:12] LABS: BASO % 1.5 % (0-2.0); HEMATOCRIT 25.4 % (32.4-45.2); HEMOGLOBIN 8.5 GM/dL (10.7-15.3); LYMPH % 9.2 % (8-40); MCH 30.2 pg (25.7-33.7); MCHC 33.3 g/dl (32.0-36.0); MEAN CELL VOLUME 90.7 fl (80-96); MEAN PLT VOLUME 7.7 fl (7.5-11.1); MONO % 11.9 % (3.8-10.2); NEUT % 74.4 % (42.8-82.8); PLATELET COUNT 192 10^3/uL (134-434); RDW 16.8 % (11.6-15.6); VENOUS BASE EXCESS 6.2 mmol/L (-2-2); VENOUS O2 SATURATION 77.6 % (70-80); VENOUS PH 7.207 (7.310-7.410)
[2023-12-31] MEDS: ALBUTEROL SO4 2.5/IPRATROPIUM 0.5 INH SOL 3 ML VIAL.NEB. NEB SCH (06:18)
[2023-12-31 06:25] LABS: INR 0.82 (0.83-1.09); PROTHROMBIN TIME (PATIENT) 9.5 SEC (9.7-13.0)
[2023-12-31 06:26] LABS: VENOUS PCO2 93.4 mmHg (38-52)
[2023-12-31 06:27] LABS: ACTIVATED PTT 30.3 SECONDS (25.2-36.5)
[2023-12-31 06:29] LABS: POTASSIUM 4.4 mmol/L (3.5-5.1)
[2023-12-31 06:31] LABS: CALCIUM 8.1 mg/dL (8.5-10.1)
[2023-12-31 06:32] LABS: ALBUMIN 2.5 g/dl (3.4-5.0); BLOOD UREA NITROGEN 48.3 mg/dL (7-18); MAGNESIUM 2.3 mg/dL (1.8-2.4)
[2023-12-31 06:35] LABS: CREATININE 2.3 mg/dL (0.55-1.3); PHOSPHOROUS 3.9 mg/dL (2.5-4.9)
[2023-12-31] MEDS ORDERED: methylPREDNISolone NA SUCC 125 MG/2 ML VIAL ONE (06:35)
[2023-12-31 06:36] LABS: BILIRUBIN,TOTAL 0.5 mg/dL (0.2-1); TOT PROT 4.9 g/dl (6.4-8.2)
[2023-12-31 06:40] LABS: N-TERMINAL BNP 5531.2 pg/ml (5-125)
[2023-12-31] MEDS: methylPREDNISolone NA SUCC 125 MG/2 ML VIAL IVPUSH ONE (06:57)
[2023-12-31] MEDS ORDERED: ALBUTEROL SO4 2.5/IPRATROPIUM 0.5 INH SOL 3 ML VIAL.NEB. NEB ONE ×2 (06:58→07:00)
[2023-12-31 07:48] LABS: EPI CELLS 14 /uL (0-25.1); HYALINE CASTS 2 /uL (0-3.1); URINE APPEARANCE CLEAR; URINE BACTERIA 9 /uL (0-1359); URINE BILIRUBIN NEGATIVE (NEGATIVE); URINE COLOR YELLOW; URINE GLUCOSE (UA) 1+ (NEGATIVE); URINE KETONE NEGATIVE (NEGATIVE); URINE LEUK ESTERASE NEGATIVE (NEGATIVE); URINE NITRITE NEGATIVE (NEGATIVE); URINE PROTEIN 4+ (NEGATIVE); URINE RBC 16 /uL (0-23.9); URINE UROBILINOGEN 0.2 mg/dL (0.2-1.0); URINE WBC 20 /uL (0-25.8)
[2023-12-31 08:58] LABS: ARTERIAL BLD GAS O2 SATURATION 98.7 % (95-98); ARTERIAL BLOOD GAS BASE EXCESS 3.7 mmol/L (-2-2); ARTERIAL BLOOD GAS PO2 158.3 mmHg (80-100); ARTERIAL BLOOD GAS pH 7.278 (7.350-7.450)
[2023-12-31] MEDS ORDERED: FUROSEMIDE 40 MG/4 ML INJECTABLE VIAL ONE (09:28)
[2023-12-31] MEDS: FUROSEMIDE 40 MG/4 ML INJECTABLE VIAL IVPUSH ONE (09:38)
[2023-12-31 11:43] VITALS: BP 141/41; PULSE 55; RESP 12
== END 2023-12-31 13:00 | disposition short-term general hospital (02) ==
LOC: JER 05:28
PROC: 3E033GC Introduction of Other Therapeutic Substance into Peripheral Vein, Percutaneous Approach (ICD-10-PCS; principal; 2023-12-31)
PROC: 3E033GC Introduction of Other Therapeutic Substance into Peripheral Vein, Percutaneous Approach (ICD-10-PCS; 2023-12-31)
PROC: 3E0F7GC Introduction of Other Therapeutic Substance into Respiratory Tract, Via Natural or Artificial Opening (ICD-10-PCS; 2023-12-31)
DX: J96.02 Acute respiratory failure with hypercapnia (principal); J44.1 Chronic obstructive pulmonary disease with (acute) exacerbation; G47.33 Obstructive sleep apnea (adult) (pediatric); Z20.822 Contact with and (suspected) exposure to COVID-19
CPT/HCPCS: 0241U-QW; 36415; 36600; 70450-TC; 71045-TC-FY; 80053; 81003; 82803; 82962; 83605; 83735; 83880; 84100; 84484; 85025; 85610; 85730; 86850; 86900; 86901; 87040; 87086; 93005; 93010; 99285-25

== ENCOUNTER 2024-02-05 16:55 | Inpatient (IN) | payer OTHER ==
[2024-02-05] MEDS ORDERED: ALBUTEROL SO4 2.5/IPRATROPIUM 0.5 INH SOL 3 ML VIAL.NEB. NEB ONE (17:46)
[2024-02-05] MEDS ORDERED: methylPREDNISolone NA SUCC 125 MG/2 ML VIAL ONE (17:46)
[2024-02-05] MEDS: methylPREDNISolone NA SUCC 125 MG/2 ML VIAL IVPUSH ONE (18:24)
[2024-02-05] MEDS: ALBUTEROL SO4 2.5/IPRATROPIUM 0.5 INH SOL 3 ML VIAL.NEB. NEB SCH (18:24)
[2024-02-05 18:57] LABS: VENOUS BASE EXCESS 4.6 mmol/L (-2-2); VENOUS O2 SATURATION 77.1 % (70-80); VENOUS PCO2 67.9 mmHg (38-52); VENOUS PH 7.294 (7.310-7.410)
[2024-02-05 19:01] LABS: BASO % 1.1 % (0-2.0); EOS % 4.6 % (0-4.5); HEMATOCRIT 25.8 % (32.4-45.2); HEMOGLOBIN 8.5 GM/dL (10.7-15.3); LYMPH % 12.3 % (8-40); MCH 29.5 pg (25.7-33.7); MCHC 32.8 g/dl (32.0-36.0); MEAN CELL VOLUME 89.7 fl (80-96); MEAN PLT VOLUME 6.8 fl (7.5-11.1); MONO % 11.4 % (3.8-10.2); NEUT % 70.6 % (42.8-82.8); PLATELET COUNT 255 10^3/uL (134-434); RBC 2.88 M/mm3 (3.60-5.2); RDW 17.3 % (11.6-15.6); WHITE BLOOD COUNT 4.9 K/mm3 (4.0-10.0)
[2024-02-05] MEDS ORDERED: ACETAMINOPHEN INJECTION 100 ML ONE (19:24)
[2024-02-05] MEDS: ACETAMINOPHEN 1000 MG/100 ML BAG IVPB ONE (19:29)
[2024-02-05 19:34] LABS: POTASSIUM 4.4 mmol/L (3.5-5.1)
[2024-02-05 19:37] LABS: ALBUMIN 2.5 g/dl (3.4-5.0); CALCIUM 8.3 mg/dL (8.5-10.1)
[2024-02-05 19:38] LABS: BLOOD UREA NITROGEN 35.6 mg/dL (7-18)
[2024-02-05 19:40] LABS: CREATININE 1.7 mg/dL (0.55-1.3)
[2024-02-05 19:42] LABS: BILIRUBIN,TOTAL 0.4 mg/dL (0.2-1); TOT PROT 5.2 g/dl (6.4-8.2)
[2024-02-05 19:45] LABS: N-TERMINAL BNP 3196.2 pg/ml (5-125)
[2024-02-05] MEDS ORDERED: CEFTRIAXONE 1 GM/50 ML BAG ONE (21:20)
[2024-02-05] MEDS ORDERED: AZITHROMYCIN IVPB 500 MG/250 ML BAG IVPB ONE (21:20)
[2024-02-05] MEDS: CEFTRIAXONE 1 MG in DEXTROSE 5%-WATER - 50 ML IVPB ONE (21:34)
[2024-02-05] MEDS: AZITHROMYCIN IVPB 500 MG in DEXTROSE 5%-WATER - 250 ML IVPB ONE (22:03)
[2024-02-06] MEDS ORDERED: methylPREDNISolone NA SUCC 40 MG/1 ML VIAL ONE ×2 (02:30→08:07)
[2024-02-06] MEDS: methylPREDNISolone NA SUCC 40 MG/1 ML VIAL IVPUSH SCH (02:39)
[2024-02-06] MEDS ORDERED: SENNOSIDES 8.6MG TABLET (FP) PO PRN (06:28)
[2024-02-06] MEDS ORDERED: ALBUTEROL SO4 2.5/IPRATROPIUM 0.5 INH SOL 3 ML VIAL.NEB. NEB PRN (06:31)
[2024-02-06] MEDS ORDERED: ISOSORBIDE MONONITRATE 60 MG TAB.SR.24H (FP) PO ONE (08:06)
[2024-02-06] MEDS ORDERED: ASPIRIN 81 MG CHEWABLE TABLETS ONE (08:06)
[2024-02-06] MEDS ORDERED: FERROUS SO4 325 MG TABLET (FP) ONE (08:07)
[2024-02-06] MEDS ORDERED: CITALOPRAM HYDROBROMIDE 10 MG TABLET ONE (08:07)
[2024-02-06] MEDS ORDERED: PIPERACILLIN/TAZOB 2.25 GM 2.25 GM/50 ML BAG IVPB ONE ×2 (08:07→21:26)
[2024-02-06] MEDS: BUMETANIDE 1 MG TABLET PO SCH (08:32)
[2024-02-06] MEDS: PIPERACILLIN/TAZOB 2.25 GM 2.25 GM in DEXTROSE 5%-WATER - 50 ML IVPB SCH ×2 (08:33→21:46)
[2024-02-06 09:18] LABS: HEMATOCRIT 28.4 % (32.4-45.2); HEMOGLOBIN 9.3 GM/dL (10.7-15.3); MCH 29.4 pg (25.7-33.7); MCHC 32.9 g/dl (32.0-36.0); MEAN CELL VOLUME 89.4 fl (80-96); MEAN PLT VOLUME 6.7 fl (7.5-11.1); PLATELET COUNT 273 10^3/uL (134-434); RBC 3.18 M/mm3 (3.60-5.2)
[2024-02-06 09:29] LABS: WHITE BLOOD COUNT 1.3 K/mm3 (4.0-10.0)
[2024-02-06] MEDS: FERROUS SO4 325 MG TABLET (FP) PO SCH (09:33)
[2024-02-06] MEDS: POTASSIUM CHLORIDE TABS 20 MEQ TABLET.ER (FP) PO SCH (09:33)
[2024-02-06] MEDS: ISOSORBIDE MONONITRATE 60 MG TAB.SR.24H (FP) PO SCH (09:33)
[2024-02-06] MEDS: ASPIRIN 81 MG CHEWABLE TABLETS PO SCH (09:33)
[2024-02-06] MEDS: CITALOPRAM HYDROBROMIDE 10 MG TABLET PO SCH (09:33)
[2024-02-06 10:05] LABS: BLOOD UREA NITROGEN 40.2 mg/dL (7-18); CALCIUM 8.6 mg/dL (8.5-10.1); CREATININE 1.7 mg/dL (0.55-1.3); POTASSIUM 5.2 mmol/L (3.5-5.1)
[2024-02-06] MEDS: FLUTICASONE/UMECLIDIN/VILANTER(100-62.5-25 TRELEGY ELLIPTA) INAHLER IH SCH (10:07)
[2024-02-06 10:12] LABS: ANISOCYTOSIS 0; MACROCYTOSIS 0
[2024-02-06 10:41] LABS: HEMATOCRIT 29.1 % (32.4-45.2); HEMOGLOBIN 9.7 GM/dL (10.7-15.3); MCH 29.7 pg (25.7-33.7); MCHC 33.4 g/dl (32.0-36.0); MEAN PLT VOLUME 6.7 fl (7.5-11.1); PLATELET COUNT 272 10^3/uL (134-434); RBC 3.27 M/mm3 (3.60-5.2); RDW 17.1 % (11.6-15.6)
[2024-02-06 10:46] LABS: WHITE BLOOD COUNT 1.3 K/mm3 (4.0-10.0)
[2024-02-06] MEDS ORDERED: ALBUTEROL SO4 2.5/IPRATROPIUM 0.5 INH SOL 3 ML VIAL.NEB. NEB SCH (12:00)
[2024-02-06] MEDS ORDERED: ALBUTEROL SO4 0.083% IH SOL 2.5 MG/3 ML VIAL.NEB. NEB ONE ×3 (12:45→21:25)
[2024-02-06] MEDS ORDERED: ACETAMINOPHEN 325 MG TABLET (FP) ONE ×2 (12:45→18:15)
[2024-02-06] MEDS: ALBUTEROL SO4 0.083% IH SOL 2.5 MG/3 ML VIAL.NEB. NEB SCH (12:51)
[2024-02-06] MEDS: ACETAMINOPHEN 325 MG TABLET (FP) PO PRN (12:51)
[2024-02-06] MEDS ORDERED: hydrALAZINE HCL 50 MG TABLET (FP) ONE ×2 (15:40→21:25)
[2024-02-06] MEDS: hydrALAZINE HCL 50 MG TABLET (FP) PO SCH (15:46)
[2024-02-06 21:20] LABS: EPI CELLS 13 /uL (0-25.1); HYALINE CASTS 1 /uL (0-3.1); URINE APPEARANCE CLEAR; URINE BACTERIA 37 /uL (0-1359); URINE BILIRUBIN NEGATIVE (NEGATIVE); URINE COLOR YELLOW; URINE GLUCOSE (UA) TRACE (NEGATIVE); URINE KETONE NEGATIVE (NEGATIVE); URINE LEUK ESTERASE NEGATIVE (NEGATIVE); URINE NITRITE NEGATIVE (NEGATIVE); URINE PROTEIN 3+ (NEGATIVE); URINE RBC 19 /uL (0-23.9); URINE UROBILINOGEN 0.2 mg/dL (0.2-1.0); URINE WBC 16 /uL (0-25.8)
[2024-02-06] MEDS ORDERED: GABAPENTIN 100 MG CAPSULE ONE (21:25)
[2024-02-06] MEDS ORDERED: amLODIPine BESYLATE 10 MG TABLET (FP) ONE (21:25)
[2024-02-06] MEDS ORDERED: ATORVASTATIN CA 80 MG TABLET (FP) ONE (21:25)
[2024-02-06] MEDS ORDERED: MONTELUKAST NA 10 MG TABLET ONE (21:25)
[2024-02-06] MEDS ORDERED: FUROSEMIDE 40 MG/4 ML INJECTABLE VIAL ONE (21:26)
[2024-02-06] MEDS: FUROSEMIDE 40 MG/4 ML INJECTABLE VIAL IVPUSH ONE (21:46)
[2024-02-06] MEDS: GABAPENTIN 100 MG CAPSULE PO SCH (22:00)
[2024-02-06] MEDS: MONTELUKAST NA 10 MG TABLET PO SCH (22:00)
[2024-02-06] MEDS: amLODIPine BESYLATE 10 MG TABLET (FP) PO SCH (22:00)
[2024-02-06] MEDS: ATORVASTATIN CA 80 MG TABLET (FP) PO SCH (22:00)
[2024-02-06] MEDS: LATANOPROST 0.005% OPHTH SOLN 2.5ML BOTTLE OU SCH (23:00)
[2024-02-07] MEDS: PIPERACILLIN/TAZOB 2.25 GM 2.25 GM in DEXTROSE 5%-WATER - 50 ML IVPB SCH (00:02)
[2024-02-07] MEDS: FUROSEMIDE 40 MG/4 ML INJECTABLE VIAL IVPUSH SCH (06:19)
[2024-02-07 08:16] LABS: BASO % 0.5 % (0-2.0); EOS % 0.1 % (0-4.5); HEMATOCRIT 27.5 % (32.4-45.2); HEMOGLOBIN 9.1 GM/dL (10.7-15.3); LYMPH % 9.2 % (8-40); MCHC 33.1 g/dl (32.0-36.0); MEAN CELL VOLUME 90.7 fl (80-96); MEAN PLT VOLUME 6.7 fl (7.5-11.1); MONO % 11.6 % (3.8-10.2); NEUT % 78.6 % (42.8-82.8); PLATELET COUNT 330 10^3/uL (134-434); RBC 3.03 M/mm3 (3.60-5.2); RDW 17.3 % (11.6-15.6); WHITE BLOOD COUNT 4.3 K/mm3 (4.0-10.0)
[2024-02-07 08:37] LABS: POTASSIUM 4.6 mmol/L (3.5-5.1)
[2024-02-07 08:41] LABS: ALBUMIN 2.6 g/dl (3.4-5.0)
[2024-02-07 08:44] LABS: BLOOD UREA NITROGEN 44.5 mg/dL (7-18); CALCIUM 8.4 mg/dL (8.5-10.1); CREATININE 1.7 mg/dL (0.55-1.3)
[2024-02-07 08:46] LABS: BILIRUBIN,TOTAL 0.4 mg/dL (0.2-1); TOT PROT 5.4 g/dl (6.4-8.2)
[2024-02-07] MEDS: ARTIFICIAL TEARS OPHTHALMIC DROPS OU PRN (10:25)
[2024-02-07] MEDS: methylPREDNISolone NA SUCC 40 MG/1 ML VIAL IVPUSH SCH (10:52)
[2024-02-07 15:18] VITALS: BMI 31.6
[2024-02-07] MEDS: SIMETHICONE 80 MG TAB.CHEW (FP) PO PRN (22:19)
[2024-02-08] MEDS: PANTOPRAZOLE 40 MG TABLET PO SCH (09:56)
[2024-02-08] MEDS: POLYETHYLENE GLYCOL (HEALTHYLAX) 3350 17 GM PACKET PO SCH (09:57)
[2024-02-08] MEDS: IRON SUCROSE INJECTION 200 MG in SODIUM CHLORIDE 100 ML IVPB ONE (09:57)
[2024-02-08 13:45] LABS: EPI CELLS 13 /uL (0-25.1); HYALINE CASTS 2 /uL (0-3.1); URINE APPEARANCE CLEAR; URINE BACTERIA 9 /uL (0-1359); URINE BILIRUBIN NEGATIVE (NEGATIVE); URINE COLOR YELLOW; URINE GLUCOSE (UA) TRACE (NEGATIVE); URINE KETONE NEGATIVE (NEGATIVE); URINE LEUK ESTERASE NEGATIVE (NEGATIVE); URINE NITRITE NEGATIVE (NEGATIVE); URINE PROTEIN 3+ (NEGATIVE); URINE RBC 39 /uL (0-23.9); URINE UROBILINOGEN 0.2 mg/dL (0.2-1.0); URINE WBC 31 /uL (0-25.8)
[2024-02-08] MEDS ORDERED: PIPERACILLIN/TAZOBACTAM 2.25 GM VIAL IVPB ONE (17:34)
[2024-02-08] MEDS: INSULIN (LEVEMIR) 100 UNITS/ML UNITS SQ SCH (21:29)
[2024-02-09] MEDS: IRON SUCROSE INJECTION 200 MG in SODIUM CHLORIDE 100 ML IVPB ONE (10:24)
[2024-02-09] MEDS: TORSEMIDE 20 MG TABLET (FP) PO SCH (10:25)
[2024-02-09 11:22] LABS: BASO % 0.4 % (0-2.0); EOS % 0.4 % (0-4.5); HEMATOCRIT 27.9 % (32.4-45.2); HEMOGLOBIN 9.1 GM/dL (10.7-15.3); LYMPH % 13.6 % (8-40); MCH 29.1 pg (25.7-33.7); MCHC 32.4 g/dl (32.0-36.0); MEAN CELL VOLUME 89.7 fl (80-96); MEAN PLT VOLUME 6.2 fl (7.5-11.1); MONO % 15.2 % (3.8-10.2); NEUT % 70.4 % (42.8-82.8); PLATELET COUNT 317 10^3/uL (134-434); RBC 3.11 M/mm3 (3.60-5.2); RDW 17.1 % (11.6-15.6); WHITE BLOOD COUNT 4.8 K/mm3 (4.0-10.0)
[2024-02-09 11:41] LABS: POTASSIUM 4.5 mmol/L (3.5-5.1)
[2024-02-09 11:54] LABS: ALBUMIN 2.5 g/dl (3.4-5.0); BLOOD UREA NITROGEN 49.9 mg/dL (7-18)
[2024-02-09 11:56] LABS: CALCIUM 8.5 mg/dL (8.5-10.1)
[2024-02-09 11:57] LABS: CREATININE 1.7 mg/dL (0.55-1.3)
[2024-02-09 11:59] LABS: BILIRUBIN,TOTAL 0.4 mg/dL (0.2-1)
[2024-02-11] MEDS ORDERED: INSULIN (LEVEMIR) 100 UNITS/ML UNITS SQ ONE (08:15)
[2024-02-11] MEDS ORDERED: INSULIN ASPART SLIDING SCALE (NOVOLOG) 1 VIAL SQ ONE (08:15)
[2024-02-11 14:04] VITALS: BP 142/55; PULSE 56; RESP 16; TEMP 98.1
== END 2024-02-11 16:21 | DRG 291 ==
LOC: JER 16:55 → JERBED 20:26 → OBSVTOIN 22:51 → J4S 02-07 01:23
PROVIDERS: ADMIT Internal Medicine; ATTEND Family Medicine
DX: I13.0 Hypertensive heart and chronic kidney disease with heart failure and stage 1 through stage 4 chronic kidney disease, or unspecified chronic kidney disease (principal); I50.33 Acute on chronic diastolic (congestive) heart failure; J18.9 Pneumonia, unspecified organism; J96.21 Acute and chronic respiratory failure with hypoxia; J96.22 Acute and chronic respiratory failure with hypercapnia; J44.1 Chronic obstructive pulmonary disease with (acute) exacerbation; J44.0 Chronic obstructive pulmonary disease with (acute) lower respiratory infection; G47.33 Obstructive sleep apnea (adult) (pediatric); E78.5 Hyperlipidemia, unspecified; E11.9 Type 2 diabetes mellitus without complications; Z99.81 Dependence on supplemental oxygen; I25.10 Atherosclerotic heart disease of native coronary artery without angina pectoris; I35.0 Nonrheumatic aortic (valve) stenosis; R91.1 Solitary pulmonary nodule; D64.9 Anemia, unspecified; F41.9 Anxiety disorder, unspecified; F32.A Depression, unspecified; D50.9 Iron deficiency anemia, unspecified; Z95.1 Presence of aortocoronary bypass graft; N18.9 Chronic kidney disease, unspecified; I89.0 Lymphedema, not elsewhere classified; N28.1 Cyst of kidney, acquired
CPT/HCPCS: 0241U-QW; 36415; 71045-TC-FY; 71250-TC; 76775-TC; 80048; 80053; 81003; 82570; 82728; 82803; 82962; 83540; 83550; 83880; 84156; 84300; 84484; 85025; 85027; 87040; 87070; 87086; 87205; 87633; 87899; 93005; 93010; 93306-TC; 93970-TC; 94640; 94660; 97116-GP; 97161-GP; 99285-25; G0378; J0131; J1756

== ENCOUNTER 2024-03-14 08:41 | Inpatient (IN) | payer OTHER ==
[2024-03-14] MEDS ORDERED: ALBUTEROL SO4 2.5/IPRATROPIUM 0.5 INH SOL 3 ML VIAL.NEB. NEB ONE (08:55)
[2024-03-14] MEDS ORDERED: ACETAMINOPHEN INJECTION 100 ML ONE (08:55)
[2024-03-14] MEDS ORDERED: RAPID SEQUENCE INTUBATION KIT NR ONE (09:29)
[2024-03-14 09:33] LABS: VENOUS BASE EXCESS 0.7 mmol/L (-2-2); VENOUS O2 SATURATION 86.1 % (70-80); VENOUS PH 7.201 (7.310-7.410)
[2024-03-14 09:35] LABS: VENOUS PCO2 78.8 mmHg (38-52)
[2024-03-14] MEDS: ACETAMINOPHEN 1000 MG/100 ML BAG IVPB ONE (09:36)
[2024-03-14] MEDS: ALBUTEROL SO4 2.5/IPRATROPIUM 0.5 INH SOL 3 ML VIAL.NEB. NEB ONE (09:36)
[2024-03-14 09:37] LABS: BASO % 1.3 % (0-2.0); EOS % 0.9 % (0-4.5); HEMATOCRIT 28.2 % (32.4-45.2); HEMOGLOBIN 9.5 GM/dL (10.7-15.3); LYMPH % 5.8 % (8-40); MCH 29.2 pg (25.7-33.7); MCHC 33.8 g/dl (32.0-36.0); MEAN CELL VOLUME 86.4 fl (80-96); MEAN PLT VOLUME 7.1 fl (7.5-11.1); MONO % 9.7 % (3.8-10.2); NEUT % 82.3 % (42.8-82.8); PLATELET COUNT 441 10^3/uL (134-434); RBC 3.27 M/mm3 (3.60-5.2); RDW 16.7 % (11.6-15.6); WHITE BLOOD COUNT 5.6 K/mm3 (4.0-10.0)
[2024-03-14 09:38] LABS: INR 0.99 (0.83-1.09); PROTHROMBIN TIME (PATIENT) 11.4 SEC (9.7-13.0)
[2024-03-14 09:41] LABS: ACTIVATED PTT 44.4 SECONDS (25.2-36.5)
[2024-03-14] MEDS ORDERED: VANCOMYCIN 1 GRAM (PRE-DOCKED) 1,000 MG/250 ML BAG IVPB ONE (09:44)
[2024-03-14] MEDS ORDERED: PIPERACILLIN/TAZOB 3.375 GM 3.375 GM/50 ML BAG IVPB ONE ×2 (09:44→18:55)
[2024-03-14 09:52] LABS: POTASSIUM 4.9 mmol/L (3.5-5.1)
[2024-03-14] MEDS: PIPERACILLIN/TAZOB 3.375 GM 3.375 GM in DEXTROSE 5%-WATER - 50 ML IVPB ONE (09:55)
[2024-03-14] MEDS: LACTATED RINGERS SOLUTION 1,000 ML/1,000 ML INFUS.BAG IV SCH (09:55)
[2024-03-14 09:57] LABS: CALCIUM 8.9 mg/dL (8.5-10.1)
[2024-03-14 09:58] LABS: ALBUMIN 2.6 g/dl (3.4-5.0)
[2024-03-14 10:01] LABS: CREATININE 1.8 mg/dL (0.55-1.3)
[2024-03-14 10:02] LABS: BILIRUBIN,TOTAL 0.5 mg/dL (0.2-1); TOT PROT 5.4 g/dl (6.4-8.2)
[2024-03-14] MEDS: VANCOMYCIN 1,000 MG in DEXTROSE 5%-WATER - 250 ML IVPB ONE (11:12)
[2024-03-14 12:11] LABS: EPI CELLS >36 /uL (0-25.1); HYALINE CASTS 20 /uL (0-3.1); PH,URINE 5.5 (5.0-8.0); URINE APPEARANCE CLOUDY; URINE BACTERIA 7 /uL (0-1359); URINE BILIRUBIN NEGATIVE (NEGATIVE); URINE COLOR YELLOW; URINE GLUCOSE (UA) TRACE (NEGATIVE); URINE KETONE TRACE (NEGATIVE); URINE LEUK ESTERASE NEGATIVE (NEGATIVE); URINE NITRITE NEGATIVE (NEGATIVE); URINE PROTEIN 4+ (NEGATIVE); URINE RBC 5 /uL (0-23.9); URINE UROBILINOGEN 0.2 mg/dL (0.2-1.0)
[2024-03-14 12:52] LABS: URINE WBC 58 /uL (0-25.8)
[2024-03-14] MEDS ORDERED: FUROSEMIDE 40 MG/4 ML INJECTABLE VIAL ONE ×2 (12:54→18:55)
[2024-03-14] MEDS: FUROSEMIDE 40 MG/4 ML INJECTABLE VIAL IVPUSH ONE ×2 (13:03→20:50)
[2024-03-14 14:29] LABS: ARTERIAL BLD GAS O2 SATURATION 95.8 % (95-98); ARTERIAL BLOOD GAS BASE EXCESS -1.7 mmol/L (-2-2); ARTERIAL BLOOD GAS PO2 94.8 mmHg (80-100); ARTERIAL BLOOD GAS pH 7.243 (7.350-7.450)
[2024-03-14 14:33] LABS: ALLENS TEST POSITIVE
[2024-03-14 14:34] LABS: VENT MODE ST; VENT RATE 10
[2024-03-14] MEDS ORDERED: ALBUTEROL SO4 0.083% IH SOL 2.5 MG/3 ML VIAL.NEB. NEB ONE (14:43)
[2024-03-14] MEDS: ALBUTEROL SO4 0.083% IH SOL 2.5 MG/3 ML VIAL.NEB. NEB SCH (15:02)
[2024-03-14] MEDS ORDERED: PIPERACILLIN/TAZOB 3.375 GM 3.375 GM in DEXTROSE 5%-WATER - 50 ML IVPB SCH (18:00)
[2024-03-14] MEDS ORDERED: PIPERACILLIN/TAZOB 3.375 GM 50 ML IVPB SCH (18:00)
[2024-03-14] MEDS: PIPERACILLIN/TAZOB 3.375 GM 3.375 GM in DEXTROSE 5%-WATER - 50 ML IVPB SCH (20:50)
[2024-03-14] MEDS: ATORVASTATIN CA 80 MG TABLET (FP) PO SCH (21:55)
[2024-03-15] MEDS: PIPERACILLIN/TAZOB 3.375 GM 50 ML IVPB SCH (00:59)
[2024-03-15] MEDS: ACETAMINOPHEN 1000 MG/100 ML BAG IVPB ONE (03:24)
[2024-03-15] MEDS: DEXTROSE 50%-WATER 25 GM/50 ML DISP.SYRIN IVPUSH ONE (06:55)
[2024-03-15 08:36] LABS: BASO % 1.3 % (0-2.0); EOS % 1.1 % (0-4.5); HEMATOCRIT 26.7 % (32.4-45.2); HEMOGLOBIN 8.7 GM/dL (10.7-15.3); MCH 28.5 pg (25.7-33.7); MCHC 32.6 g/dl (32.0-36.0); MEAN CELL VOLUME 87.4 fl (80-96); MEAN PLT VOLUME 6.7 fl (7.5-11.1); MONO % 17.5 % (3.8-10.2); NEUT % 71.1 % (42.8-82.8); PLATELET COUNT 287 10^3/uL (134-434); RBC 3.05 M/mm3 (3.60-5.2); RDW 16.3 % (11.6-15.6); WHITE BLOOD COUNT 3.8 K/mm3 (4.0-10.0)
[2024-03-15 09:08] LABS: CALCIUM 8.7 mg/dL (8.5-10.1)
[2024-03-15 09:09] LABS: ALBUMIN 2.5 g/dl (3.4-5.0); MAGNESIUM 2.6 mg/dL (1.8-2.4)
[2024-03-15 09:12] LABS: CREATININE 1.8 mg/dL (0.55-1.3)
[2024-03-15 09:14] LABS: BILIRUBIN,TOTAL 0.4 mg/dL (0.2-1)
[2024-03-15] MEDS: ASPIRIN 81 MG CHEWABLE TABLETS PO SCH ×2 (09:14→18:35)
[2024-03-15] MEDS: FUROSEMIDE 40 MG/4 ML INJECTABLE VIAL IVPUSH SCH (09:14)
[2024-03-15] MEDS: CITALOPRAM HYDROBROMIDE 10 MG TABLET PO SCH (09:14)
[2024-03-15 09:15] LABS: TOT PROT 4.8 g/dl (6.4-8.2)
[2024-03-15 14:52] LABS: N-TERMINAL BNP 31359.1 pg/ml (5-125)
[2024-03-15 15:23] LABS: ARTERIAL BLD GAS O2 SATURATION 96.6 % (95-98); ARTERIAL BLOOD GAS PO2 92.6 mmHg (80-100); ARTERIAL BLOOD GAS pH 7.348 (7.350-7.450)
[2024-03-15 15:25] LABS: ALLENS TEST POSITIVE; VENT MODE ST
[2024-03-15 15:26] LABS: VENT RATE 16
[2024-03-15] MEDS: FLUTICASONE/UMECLIDIN/VILANTER(100-62.5-25 TRELEGY ELLIPTA) INAHLER IH SCH (18:34)
[2024-03-16 05:50] LABS: ARTERIAL BLD GAS O2 SATURATION 92.1 % (95-98); ARTERIAL BLOOD GAS pH 7.321 (7.350-7.450)
[2024-03-16 05:56] LABS: ALLENS TEST POSITIVE
[2024-03-16] MEDS: FUROSEMIDE 40 MG/4 ML INJECTABLE VIAL IVPUSH SCH (06:36)
[2024-03-16 08:55] LABS: BASO % 2.1 % (0-2.0); EOS % 2.2 % (0-4.5); HEMATOCRIT 28.6 % (32.4-45.2); HEMOGLOBIN 9.6 GM/dL (10.7-15.3); LYMPH % 11.5 % (8-40); MCH 28.9 pg (25.7-33.7); MCHC 33.6 g/dl (32.0-36.0); MEAN CELL VOLUME 85.9 fl (80-96); MEAN PLT VOLUME 6.4 fl (7.5-11.1); NEUT % 66.2 % (42.8-82.8); PLATELET COUNT 321 10^3/uL (134-434); RBC 3.34 M/mm3 (3.60-5.2); RDW 16.2 % (11.6-15.6)
[2024-03-16 09:12] LABS: POTASSIUM 3.8 mmol/L (3.5-5.1)
[2024-03-16 09:14] LABS: CALCIUM 8.2 mg/dL (8.5-10.1)
[2024-03-16 09:15] LABS: BLOOD UREA NITROGEN 27.6 mg/dL (7-18)
[2024-03-16 09:18] LABS: CREATININE 1.6 mg/dL (0.55-1.3)
[2024-03-16] MEDS: methylPREDNISolone NA SUCC 40 MG/1 ML VIAL IVPUSH SCH (13:45)
[2024-03-16 17:59] LABS: ARTERIAL BLD GAS O2 SATURATION 92.2 % (95-98); ARTERIAL BLOOD GAS BASE EXCESS -3.9 mmol/L (-2-2); ARTERIAL BLOOD GAS PO2 71.1 mmHg (80-100); ARTERIAL BLOOD GAS pH 7.281 (7.350-7.450)
[2024-03-16 18:01] LABS: ALLENS TEST POSITIVE; VENT MODE S/T; VENT RATE 16
[2024-03-17] MEDS ORDERED: DEXTROSE 50%-WATER 25 GM/50 ML DISP.SYRIN IVPUSH PRN (08:02)
[2024-03-17 09:46] LABS: POTASSIUM 4.3 mmol/L (3.5-5.1)
[2024-03-17 10:02] LABS: ALBUMIN 2.3 g/dl (3.4-5.0); BLOOD UREA NITROGEN 43.2 mg/dL (7-18); CALCIUM 8.5 mg/dL (8.5-10.1)
[2024-03-17 10:05] LABS: BILIRUBIN,TOTAL 0.5 mg/dL (0.2-1); CREATININE 2.3 mg/dL (0.55-1.3); TOT PROT 4.9 g/dl (6.4-8.2)
[2024-03-17 11:07] LABS: ARTERIAL BLD GAS O2 SATURATION 85.2 % (95-98); ARTERIAL BLOOD GAS BASE EXCESS 2.1 mmol/L (-2-2); ARTERIAL BLOOD GAS PO2 59.8 mmHg (80-100); ARTERIAL BLOOD GAS pH 7.238 (7.350-7.450)
[2024-03-17 11:09] LABS: ALLENS TEST POSITIVE
[2024-03-17 15:11] LABS: ARTERIAL BLD GAS O2 SATURATION 92.2 % (95-98); ARTERIAL BLOOD GAS BASE EXCESS -0.3 mmol/L (-2-2); ARTERIAL BLOOD GAS PO2 77.3 mmHg (80-100); ARTERIAL BLOOD GAS pH 7.217 (7.350-7.450)
[2024-03-17 15:13] LABS: ALLENS TEST POSITIVE
[2024-03-17 15:14] LABS: VENT MODE S/T
[2024-03-17 15:15] LABS: VENT RATE 16
[2024-03-17] MEDS: SODIUM CHLORIDE 500 ML IV STA (18:55)
[2024-03-17] MEDS ORDERED: ARTIFICIAL TEARS OPHTHALMIC DROPS OU PRN (19:27)
[2024-03-17 21:54] LABS: ARTERIAL BLD GAS O2 SATURATION 95.5 % (95-98); ARTERIAL BLOOD GAS PO2 94.4 mmHg (80-100); ARTERIAL BLOOD GAS pH 7.225 (7.350-7.450)
[2024-03-17 22:03] LABS: ALLENS TEST POSITIVE; VENT MODE ST
[2024-03-17 22:04] LABS: VENT RATE 18
[2024-03-17] MEDS: HEPARIN NA (PORCINE) 5,000 UNITS/ML 1ML VIAL SQ SCH (22:38)
[2024-03-17] MEDS: LATANOPROST 0.005% OPHTH SOLN 2.5ML BOTTLE OS SCH (22:38)
[2024-03-18 02:08] LABS: ARTERIAL BLD GAS O2 SATURATION 99.4 % (95-98); ARTERIAL BLOOD GAS BASE EXCESS 3.7 mmol/L (-2-2); ARTERIAL BLOOD GAS PO2 227.4 mmHg (80-100); ARTERIAL BLOOD GAS pH 7.303 (7.350-7.450)
[2024-03-18 02:11] LABS: ALLENS TEST POSITIVE
[2024-03-18 02:12] LABS: VENT MODE S/T; VENT RATE 14
[2024-03-18 06:08] LABS: ARTERIAL BLD GAS O2 SATURATION 88.6 % (95-98); ARTERIAL BLOOD GAS BASE EXCESS 4.3 mmol/L (-2-2); ARTERIAL BLOOD GAS PO2 60.1 mmHg (80-100)
[2024-03-18 06:10] LABS: ALLENS TEST POSITIVE
[2024-03-18 06:11] LABS: VENT MODE ST; VENT RATE 14
[2024-03-18 07:39] LABS: BASO % 0.5 % (0-2.0); LYMPH % 15.1 % (8-40); MCH 28.8 pg (25.7-33.7); MCHC 33.4 g/dl (32.0-36.0); MEAN CELL VOLUME 86.3 fl (80-96); MEAN PLT VOLUME 6.5 fl (7.5-11.1); MONO % 19.3 % (3.8-10.2); NEUT % 65.1 % (42.8-82.8); PLATELET COUNT 325 10^3/uL (134-434); RBC 2.78 M/mm3 (3.60-5.2); RDW 16.5 % (11.6-15.6); WHITE BLOOD COUNT 3.7 K/mm3 (4.0-10.0)
[2024-03-18 07:54] LABS: ALBUMIN 2.3 g/dl (3.4-5.0); CALCIUM 8.2 mg/dL (8.5-10.1)
[2024-03-18 07:55] LABS: MAGNESIUM 2.9 mg/dL (1.8-2.4)
[2024-03-18 07:57] LABS: CREATININE 2.7 mg/dL (0.55-1.3)
[2024-03-18 07:58] LABS: PHOSPHOROUS 7.5 mg/dL (2.5-4.9)
[2024-03-18 07:59] LABS: BILIRUBIN,TOTAL 0.4 mg/dL (0.2-1); TOT PROT 4.9 g/dl (6.4-8.2)
[2024-03-18] MEDS: PANTOPRAZOLE SODIUM 40 MG VIAL IVPUSH SCH (10:40)
[2024-03-18] MEDS: SODIUM CHLORIDE 1,000 ML IV SCH (13:31)
[2024-03-18 22:05] LABS: ARTERIAL BLD GAS O2 SATURATION 98.3 % (95-98); ARTERIAL BLOOD GAS BASE EXCESS 1.7 mmol/L (-2-2); ARTERIAL BLOOD GAS PO2 139.2 mmHg (80-100); ARTERIAL BLOOD GAS pH 7.253 (7.350-7.450)
[2024-03-18 22:17] LABS: ALLENS TEST POSITIVE
[2024-03-19 07:14] LABS: POTASSIUM 4.3 mmol/L (3.5-5.1)
[2024-03-19 07:19] LABS: CALCIUM 8.2 mg/dL (8.5-10.1)
[2024-03-19 07:20] LABS: ALBUMIN 2.4 g/dl (3.4-5.0); BLOOD UREA NITROGEN 68.9 mg/dL (7-18)
[2024-03-19 07:23] LABS: BILIRUBIN,TOTAL 0.4 mg/dL (0.2-1); CREATININE 3.5 mg/dL (0.55-1.3); TOT PROT 4.9 g/dl (6.4-8.2)
[2024-03-19 07:41] LABS: BASO % 0.4 % (0-2.0); HEMATOCRIT 25.2 % (32.4-45.2); HEMOGLOBIN 8.3 GM/dL (10.7-15.3); LYMPH % 13.5 % (8-40); MCH 28.9 pg (25.7-33.7); MCHC 33.1 g/dl (32.0-36.0); MEAN CELL VOLUME 87.1 fl (80-96); MEAN PLT VOLUME 6.8 fl (7.5-11.1); MONO % 14.3 % (3.8-10.2); NEUT % 71.8 % (42.8-82.8); PLATELET COUNT 331 10^3/uL (134-434); RBC 2.89 M/mm3 (3.60-5.2); RDW 16.3 % (11.6-15.6); WHITE BLOOD COUNT 4.6 K/mm3 (4.0-10.0)
[2024-03-19 12:35] LABS: MAGNESIUM 2.9 mg/dL (1.8-2.4)
[2024-03-19] MEDS: PIPERACILLIN/TAZOB 4.5 GM 4.5 GM in DEXTROSE 5%-WATER 100 ML IVPB SCH (15:24)
[2024-03-19] MEDS ORDERED: MAG HYDROX/AL HYDROX/SIMETH 30 ML UNIT-DOSE CUP PO PRN (20:46)
[2024-03-19] MEDS: INSULIN ASPART SLIDING SCALE (NOVOLOG) 1 VIAL SQ SCH (21:28)
[2024-03-20 07:59] LABS: HEMATOCRIT 26.4 % (32.4-45.2); HEMOGLOBIN 8.7 GM/dL (10.7-15.3); MCH 28.4 pg (25.7-33.7); MCHC 32.8 g/dl (32.0-36.0); MEAN CELL VOLUME 86.5 fl (80-96); MEAN PLT VOLUME 6.8 fl (7.5-11.1); PLATELET COUNT 390 10^3/uL (134-434); RBC 3.05 M/mm3 (3.60-5.2); RDW 16.1 % (11.6-15.6)
[2024-03-20 08:10] LABS: POTASSIUM 3.7 mmol/L (3.5-5.1)
[2024-03-20 08:17] LABS: MAGNESIUM 2.9 mg/dL (1.8-2.4)
[2024-03-20 08:18] LABS: CALCIUM 8.3 mg/dL (8.5-10.1)
[2024-03-20 08:19] LABS: ALBUMIN 2.6 g/dl (3.4-5.0); BLOOD UREA NITROGEN 76.3 mg/dL (7-18); CREATININE 3.7 mg/dL (0.55-1.3); PHOSPHOROUS 5.1 mg/dL (2.5-4.9)
[2024-03-20 08:20] LABS: BILIRUBIN,TOTAL 0.5 mg/dL (0.2-1)
[2024-03-20 08:21] LABS: TOT PROT 5.2 g/dl (6.4-8.2)
[2024-03-20 09:06] LABS: ANISOCYTOSIS 1+; MACROCYTOSIS 1+
[2024-03-20] MEDS: LACTOBACILLUS ACIDOPHILUS 1 TABLET PO SCH (09:56)
[2024-03-21 08:18] LABS: HEMOGLOBIN 8.9 GM/dL (10.7-15.3); MCH 27.8 pg (25.7-33.7); MCHC 31.9 g/dl (32.0-36.0); MEAN CELL VOLUME 87.2 fl (80-96); MEAN PLT VOLUME 6.9 fl (7.5-11.1); PLATELET COUNT 391 10^3/uL (134-434); RBC 3.21 M/mm3 (3.60-5.2); RDW 16.4 % (11.6-15.6); WHITE BLOOD COUNT 5.1 K/mm3 (4.0-10.0)
[2024-03-21 08:56] LABS: ALBUMIN 2.7 g/dl (3.4-5.0); BILIRUBIN,TOTAL 0.4 mg/dL (0.2-1); BLOOD UREA NITROGEN 84.2 mg/dL (7-18); CALCIUM 8.6 mg/dL (8.5-10.1); MAGNESIUM 3.2 mg/dL (1.8-2.4); PHOSPHOROUS 5.3 mg/dL (2.5-4.9); POTASSIUM 4.4 mmol/L (3.5-5.1); TOT PROT 5.3 g/dl (6.4-8.2)
[2024-03-21 09:01] LABS: CREATININE 3.5 mg/dL (0.55-1.3)
[2024-03-21 09:12] LABS: ANISOCYTOSIS 0; MACROCYTOSIS 0
[2024-03-21] MEDS: PANTOPRAZOLE 40 MG TABLET PO SCH (10:08)
[2024-03-21] MEDS: PIPERACILLIN/TAZOB 4.5 GM 4.5 GM/100 ML BAG IVPB SCH (14:38)
[2024-03-21 16:24] LABS: ARTERIAL BLD GAS O2 SATURATION 91.7 % (95-98); ARTERIAL BLOOD GAS BASE EXCESS 2.2 mmol/L (-2-2); ARTERIAL BLOOD GAS pH 7.317 (7.350-7.450)
[2024-03-21 16:27] LABS: ALLENS TEST POSITIVE
[2024-03-21] MEDS: ZINC OXIDE 20% TOPICAL OINTMENT 30 GM TUBE TP SCH (21:57)
[2024-03-22] MEDS: ISOSORBIDE MONONITRATE 60 MG TAB.SR.24H (FP) PO SCH (10:10)
[2024-03-22] MEDS: predniSONE 20 MG TABLET (UD) PO SCH (10:10)
[2024-03-22] MEDS: ACETAMINOPHEN 325 MG TABLET (FP) PO PRN (10:29)
[2024-03-22] MEDS ORDERED: DEXTROSE 50%-WATER 25 GM/50 ML DISP.SYRIN IVPUSH PRN (12:45)
[2024-03-22 12:48] LABS: POTASSIUM 4.5 mmol/L (3.5-5.1)
[2024-03-22 12:49] LABS: BLOOD UREA NITROGEN 79.8 mg/dL (7-18); CALCIUM 8.7 mg/dL (8.5-10.1)
[2024-03-22 12:52] LABS: CREATININE 2.6 mg/dL (0.55-1.3)
[2024-03-22] MEDS: hydrALAZINE HCL 50 MG TABLET (FP) PO SCH (14:59)
[2024-03-22] MEDS: ALBUTEROL SO4 0.083% IH SOL 2.5 MG/3 ML VIAL.NEB. NEB SCH (15:10)
[2024-03-22] MEDS: ACETAMINOPHEN 1000 MG/100 ML BAG IVPB ONE (17:56)
[2024-03-22] MEDS: INSULIN ASPART SLIDING SCALE (NOVOLOG) 1 VIAL SQ SCH (18:00)
[2024-03-22] MEDS: LIDOCAINE 5% TOPICAL PATCH TP SCH (18:03)
[2024-03-22] MEDS: LIDOCAINE PATCH REMOVAL MC SCH (21:54)
[2024-03-22] MEDS: ATORVASTATIN CA 80 MG TABLET (FP) PO SCH (21:54)
[2024-03-22] MEDS: HEPARIN NA (PORCINE) 5,000 UNITS/ML 1ML VIAL SQ SCH (21:54)
[2024-03-22] MEDS: LATANOPROST 0.005% OPHTH SOLN 2.5ML BOTTLE OS SCH (21:57)
[2024-03-23 09:03] LABS: HEMATOCRIT 20.7 % (32.4-45.2); MCH 28.3 pg (25.7-33.7); MCHC 33.1 g/dl (32.0-36.0); MEAN CELL VOLUME 85.5 fl (80-96); MEAN PLT VOLUME 7.3 fl (7.5-11.1); PLATELET COUNT 355 10^3/uL (134-434); RBC 2.42 M/mm3 (3.60-5.2); RDW 16.7 % (11.6-15.6); WHITE BLOOD COUNT 6.6 K/mm3 (4.0-10.0)
[2024-03-23 09:17] LABS: POTASSIUM 5.2 mmol/L (3.5-5.1)
[2024-03-23 09:21] LABS: ALBUMIN 2.4 g/dl (3.4-5.0); CALCIUM 8.6 mg/dL (8.5-10.1)
[2024-03-23 09:22] LABS: BLOOD UREA NITROGEN 81.5 mg/dL (7-18); HEMOGLOBIN 6.8 GM/dL (10.7-15.3); MAGNESIUM 2.9 mg/dL (1.8-2.4)
[2024-03-23 09:25] LABS: CREATININE 2.2 mg/dL (0.55-1.3); PHOSPHOROUS 4.1 mg/dL (2.5-4.9)
[2024-03-23 09:27] LABS: BILIRUBIN,TOTAL 0.3 mg/dL (0.2-1); TOT PROT 4.5 g/dl (6.4-8.2)
[2024-03-23] MEDS ORDERED: predniSONE 20 MG TABLET (UD) PO SCH (10:00)
[2024-03-23] MEDS ORDERED: FUROSEMIDE 40 MG TABLET (FP) PO SCH (10:00)
[2024-03-23] MEDS ORDERED: ASPIRIN 81 MG CHEWABLE TABLETS PO SCH (10:00)
[2024-03-23 10:30] LABS: HEMATOCRIT 24.7 % (32.4-45.2); MCH 28.1 pg (25.7-33.7); MCHC 32.5 g/dl (32.0-36.0); MEAN CELL VOLUME 86.6 fl (80-96); MEAN PLT VOLUME 6.9 fl (7.5-11.1); PLATELET COUNT 389 10^3/uL (134-434); RBC 2.85 M/mm3 (3.60-5.2); RDW 16.7 % (11.6-15.6); WHITE BLOOD COUNT 7.8 K/mm3 (4.0-10.0)
[2024-03-23 10:41] LABS: ACTIVATED PTT 31.5 SECONDS (25.2-36.5); INR 0.85 (0.83-1.09); PROTHROMBIN TIME (PATIENT) 9.7 SEC (9.7-13.0)
[2024-03-23 10:54] LABS: ANISOCYTOSIS 0; MACROCYTOSIS 0
[2024-03-23] MEDS: predniSONE 10 MG TABLET (UD) PO SCH (11:16)
[2024-03-23] MEDS: PANTOPRAZOLE 40 MG TABLET PO SCH (11:16)
[2024-03-23] MEDS: CITALOPRAM HYDROBROMIDE 10 MG TABLET PO SCH (11:17)
[2024-03-23] MEDS: LACTOBACILLUS ACIDOPHILUS 1 TABLET PO SCH (11:17)
[2024-03-23] MEDS: FLUTICASONE/UMECLIDIN/VILANTER(100-62.5-25 TRELEGY ELLIPTA) INAHLER IH SCH (11:26)
[2024-03-23] MEDS: TORSEMIDE 20 MG TABLET (FP) PO SCH (12:50)
[2024-03-23] MEDS ORDERED: AMMONIUM LACTATE 12% LOTION 225 GM BOTTLE TP PRN (15:15)
[2024-03-23] MEDS: SODIUM ZIRCONIUM CYCLOSILICATE (LOKELMA) 5 GM PACKET PO SCH (16:52)
[2024-03-24 10:13] LABS: POTASSIUM 4.2 mmol/L (3.5-5.1)
[2024-03-24 10:18] LABS: BLOOD UREA NITROGEN 77.6 mg/dL (7-18)
[2024-03-24 10:19] LABS: MAGNESIUM 2.5 mg/dL (1.8-2.4)
[2024-03-24 10:22] LABS: PHOSPHOROUS 4.2 mg/dL (2.5-4.9)
[2024-03-24 12:28] VITALS: BMI 30.4
[2024-03-24] MEDS: LORATADINE 10 MG TABLET PO ONE (17:26)
[2024-03-25] MEDS: VITAMIN B COMP W-C 1 EA TABLET (NEPHRO-VITE) PO SCH (09:51)
[2024-03-25] MEDS: LORATADINE 10 MG TABLET PO SCH (16:18)
[2024-03-25 18:27] VITALS: RESP 18
[2024-03-25] MEDS: MINERAL OIL/PET HY-PHL TOPICAL OINTMENT 454 GM JAR TP SCH (18:28)
[2024-03-26] MEDS: hydrOXYzine HCL 10 MG/5 ML LIQUID BULK BOTTLE PO ONE (03:13)
[2024-03-26] MEDS: ARTIFICIAL TEARS OPHTHALMIC DROPS OU PRN (11:06)
[2024-03-26] MEDS: INSULIN (LEVEMIR) 100 UNITS/ML UNITS SQ SCH (12:35)
[2024-03-27] MEDS: DEXTROSE 4 GM TAB.CHEW PO ONE (06:50)
[2024-03-27] MEDS: predniSONE 10 MG TABLET (UD) PO SCH (09:48)
[2024-03-27] MEDS: INSULIN (LEVEMIR) 100 UNITS/ML UNITS SQ ONE (10:01)
[2024-03-27] MEDS: MAG HYDROX/AL HYDROX/SIMETH 30 ML UNIT-DOSE CUP PO PRN (13:20)
[2024-03-27 14:01] VITALS: TEMP 98.8
[2024-03-27 18:12] VITALS: BP 128/40; PULSE 74
[2024-03-27] MEDS ORDERED: INSULIN (LEVEMIR) 100 UNITS/ML UNITS SQ SCH (22:00)
== END 2024-03-27 19:25 | DRG 189 ==
LOC: JER 08:41 → JERBED 10:43 → J4W 19:17 → J5S 03-22 12:43
PROVIDERS: ADMIT Internal Medicine
PROC: 0HBRXZZ Excision of Toe Nail, External Approach (ICD-10-PCS; principal; 2024-03-24)
PROC: 0HBRXZZ Excision of Toe Nail, External Approach (ICD-10-PCS; 2024-03-24)
PROC: 0HBRXZZ Excision of Toe Nail, External Approach (ICD-10-PCS; 2024-03-24)
PROC: 0HBRXZZ Excision of Toe Nail, External Approach (ICD-10-PCS; 2024-03-24)
PROC: 0HBRXZZ Excision of Toe Nail, External Approach (ICD-10-PCS; 2024-03-24)
PROC: 0HBRXZZ Excision of Toe Nail, External Approach (ICD-10-PCS; 2024-03-24)
PROC: 0HBRXZZ Excision of Toe Nail, External Approach (ICD-10-PCS; 2024-03-24)
PROC: 0HBRXZZ Excision of Toe Nail, External Approach (ICD-10-PCS; 2024-03-24)
PROC: 0HBRXZZ Excision of Toe Nail, External Approach (ICD-10-PCS; 2024-03-24)
PROC: 0HBRXZZ Excision of Toe Nail, External Approach (ICD-10-PCS; 2024-03-24)
DX: J96.22 Acute and chronic respiratory failure with hypercapnia (principal); G93.41 Metabolic encephalopathy; J18.9 Pneumonia, unspecified organism; I50.33 Acute on chronic diastolic (congestive) heart failure; J44.1 Chronic obstructive pulmonary disease with (acute) exacerbation; I13.0 Hypertensive heart and chronic kidney disease with heart failure and stage 1 through stage 4 chronic kidney disease, or unspecified chronic kidney disease; I24.89 Other forms of acute ischemic heart disease; J44.0 Chronic obstructive pulmonary disease with (acute) lower respiratory infection; J96.21 Acute and chronic respiratory failure with hypoxia; I25.10 Atherosclerotic heart disease of native coronary artery without angina pectoris; G47.33 Obstructive sleep apnea (adult) (pediatric); I35.0 Nonrheumatic aortic (valve) stenosis; K59.00 Constipation, unspecified; F41.8 Other specified anxiety disorders; E78.5 Hyperlipidemia, unspecified; N28.1 Cyst of kidney, acquired; R79.89 Other specified abnormal findings of blood chemistry; I45.10 Unspecified right bundle-branch block; E11.22 Type 2 diabetes mellitus with diabetic chronic kidney disease; N18.9 Chronic kidney disease, unspecified; B35.1 Tinea unguium; L85.3 Xerosis cutis; Z99.81 Dependence on supplemental oxygen; Z95.1 Presence of aortocoronary bypass graft
CPT/HCPCS: 0241U-QW; 36415; 36600; 71045-TC-FY; 74018-TC-FY; 76775-TC; 80048; 80053; 81003; 82272; 82550; 82570; 82803; 82962; 83036; 83605; 83735; 83880; 84100; 84300; 84484; 85025; 85027; 85610; 85730; 86850; 86900; 86901; 87040; 87086; 93005; 93010; 93306-TC; 94640; 94660; 97116-GP; 97163-GP; 99291; J0131; J1644